=== PATIENT | female | born 1975 | race Caucasian/White ===

== ENCOUNTER 2019-07-28 10:12 | Emergency (ER) | payer MEDICAID, OTHER ==
[~2019-07-28] VITALS: Ht 162.5 cm; Wt 68.0 kg
[2019-07-28] MEDS ORDERED: LACTATED RINGERS 1,000 ML IV ONE (10:26)
[2019-07-28] MEDS ORDERED: RT-ALBUTEROL/IPRATROPIUM 3 ML (DUONEB) VIAL INH ONE (10:30)
--- NOTE | 2019-07-28 10:34 | ED Chest Pain ---
General Stated Complaint: COUGH;SOA;CP Source: patient, other (health Department and [facility]) Exam Limitations: no limitations History of Present Illness Date Seen by Provider: Jul 28, 2019 Time Seen by Provider: 10:13 Initial Comments The patient resents ER by EMS from home with chief complaint the past several days having cough, nonproductive without fever or chills, nausea vomiting. She's had chest pain worse with deep inspiration and coughing in the middle of her chest reproducible to palpation. She has no history of coronary disease but has her mom having a heart attack in her late 40s or early 50s. She smokes about half a pack of cigarettes per day. She has not been to see anybody. She called the health department and they recommended that they would see her but the health department related to the ER that they would not test her she did not h ave a fever based on her symptoms. The patient did recently relocated from [place] July 08 to be closer to her son and grandchildren. The patient stated she did not help department because she did not transportation. She is referred to [facility] who said that they would provide her transportation however they felt that her coughing was bad enough she needs to be checked out in the ER and recommend she call an ambulance. EMS reports normal oxygen sats, coughing, clear lungs and a blood sugar in the upper 80s. She has no history of diabetes, hypercholesterolemia, hypertension. She does not follow with a primary care doctor. She has untreated paranoid schizophrenia, PTSD, ADHD, bipolar disorder. Patient does not take any medicines routinely. Patient denies having taken any antipyretics today. She said she had some ibuprofen last night before going to bed she had a headache. She's not having a headache, stiff neck at this time. No nausea vomiting diarrhea. No known sick contacts. No one in the home is sick but her. Allergies and Home Medications Allergies Coded Allergies: buspirone (Verified Allergy, Unknown, 07/28/19) cephalexin (Verified Allergy, Unknown, 07/28/19) codeine (Verified Allergy, Unknown, 07/28/19) fluoxetine (Verified Allergy, Unknown, 07/28/19) haloperidol (Verified Allergy, Unknown, 07/28/19) Patient Home Medication List Home Medication List Reviewed: Yes Review of Systems Review of Systems Constitutional: No chills, No fever; malaise EENTM: No Blurred Vision, No Double Vision Respiratory: Cough, Shortness of Air; Denies SOA With Exertion, Denies SOA at Rest, Denies Wheezing Cardiovascular: See HPI, Chest Pain; Denies Irregular Heart Rate; Lig htheadedness; Denies Palpitations Gastrointestinal: Denies Abdominal Pain, Denies Constipated, Denies Diarrhea, Denies Nausea, Denies Vomiting Genitourinary: Denies Burning, Denies Discharge Musculoskeletal: No back pain, No joint pain Skin: No pruritus, No rash Psychiatric/Neurological: Denies Headache, Denies Numbness, Denies Paresthesia All Other Systems Reviewed Negative Unless Noted: Yes Past Mewgmmu-Ebzium-Qwhxgo Hx Patient Social History Alcohol Use: Denies Use Recreational Drug Use: No Smoking Status: Current Everyday Smoker Type Used: Cigarettes (half pack per day) Physical Exam Vital Signs Vital Signs - First Documented 07/28/19 07/28/19 10:12 10:43 Temp 36.8 Pulse 76 Resp 24 B/P (MAP) 95/71 (79) Pulse Ox 100 O2 Delivery Room Air Capillary Refill : Height, Weight, BMI Height: '" Weight: lbs. oz. kg; BMI Method: General Appearance: No Apparent Distress, WD/WN, Anxious HEENT: PERRL/EOMI, TMs Normal; No Moist Mucous Membranes (mildly dry); Pharyngeal Erythema; No Tonsillar Exudate, No Tonsillar Enlargement Neck: Full Range of Motion, Normal Inspection, Non Tender, Supple Respiratory: Lungs Clear, Normal Breath Sounds, No Accessory Muscle Use, No Respiratory Distress, Other (frequent, dry cough) Cardiovascular: Regular Rate, Rhythm, Normal Peripheral Pulses Gastrointestinal: Normal Bowel Sounds, Non Tender, Soft Extremity: Normal Capillary Refill, Normal Inspection, No Pedal Edema Neurologic/Psychiatric: Alert, Oriented x3, No Motor/Sensory Deficits, Normal Mood/Affect Skin: Normal Color, Warm/Dry Progress/Results/Core Measures Results/Orders Lab Results Laboratory Tests Test 07/28/19 10:24 Range/Units White Blood Count 3.2 L 4.3-11.0 10^3/uL Red Blood Count 4.25 L 4.35-5.85 10^6/uL Hemoglobin 12.1 11.5-16.0 G/DL Hematocrit 36 35-52 % Mean Corpuscular Volume 85 80-99 FL Mean Corpuscular Hemoglobin 28 25-34 PG Mean Corpuscular Hemoglobin Concent 34 32-36 G/DL Red Cell Distribution Width 15.0 H 10.0-14.5 % Platelet Count 349 130-400 10^3/uL Mean Platelet Volume 9.9 7.4-10.4 FL Neutrophils (%) (Auto) 46 42-75 % Lymphocytes (%) (Auto) 39 12-44 % Monocytes (%) (Auto) 13 H 0-12 % Eosinophils (%) (Auto) 2 0-10 % Basophils (%) (Auto) 0 0-10 % Neutrophils # (Auto) 1.5 L 1.8-7.8 X 10^3 Lymphocytes # (Auto) 1.3 1.0-4.0 X 10^3 Monocytes # (Auto) 0.4 0.0-1.0 X 10^3 Eosinophils # (Auto) 0.1 0.0-0.3 10^3/uL Basophils # (Auto) 0.0 0.0-0.1 10^3/uL Prothrombin Time 13.1 12.2-14.7 SEC INR Comment 1.0 0.8-1.4 Activated Partial Thromboplast Time 29 24-35 SEC Sodium Level 136 135-145 MMOL/L Potassium Level 4.5 3.6-5.0 MMOL/L Chloride Level 110 H 98-107 MMOL/L Carbon Dioxide Level 17 L 21-32 MMOL/L Anion Gap 9 5-14 MMOL/L Blood Urea Nitrogen 20 H 7-18 MG/DL Creatinine 0.84 0.60-1.30 MG/DL Estimat Glomerular Filtration Rate > 60 BUN/Creatinine Ratio 24 Glucose Level 109 H 70-105 MG/DL Calcium Level 8.2 L 8.5-10.1 MG/DL Corrected Calcium 8.8 8.5-10.1 MG/DL Magnesium Level 1.7 1.6-2.4 MG/DL Total Bilirubin 0.3 0.1-1.0 MG/DL Aspartate Amino Transf (AST/SGOT) 28 5-34 U/L Alanine Aminotransferase (ALT/SGPT) 26 0-55 U/L Alkaline Phosphatase 59 40-136 U/L Myoglobin 31.1 10.0-92.0 NG/ML Troponin I < 0.028 <0.028 NG/ML Total Protein 7.5 6.4-8.2 GM/DL Albumin 3.3 3.2-4.5 GM/DL Micro Results Microbiology 07/28/19 Influenza Types A,B Antigen (CHARBEL) - Final, Complete My Orders Orders - EAMON ANTUNEZ Cbc With Automated Diff (07/28/19 10:26) Magnesium (07/28/19 10:) Chest 1 View, Ap/Pa Only (07/28/19 10:) Ekg Tracing (07/28/19 10:) Comprehensive Metabolic Panel (07/28/19 10:) Myoglobin Serum (07/28/19 10:) Protime With Inr (07/28/19 10:) Partial Thromboplastin Time (07/28/19 10:) O2 (07/28/19 10:) Monitor-Rhythm Ecg Trace Only (07/28/19 10:) Lipid Panel (07/29/19 06:00) Ed Iv/Invasive Line Start (07/28/19 10:) Troponin I (07/28/19 10:) Ed Iv/Invasive Line Start (07/28/19 10:26) Lactated Ringers (Lr 1000 Ml Iv Solution (07/28/19 10:26) Albuterol/Ipra Inhalation Soln (Duoneb I (07/28/19 10:30) Svn Small Volume Nebulizer (07/28/19 10:26) Influenza A And B Antigens (07/28/19 10:) Rx-Albuterol Inhaler (Rx-Proair) (07/28/19 11:34) Medications Given in ED Current Medications Medications Dose Ordered Sig/Henry Route Start Time Stop Time Status Last Admin Dose Admin Albuterol/ Ipratropium 3 ml ONCE ONCE INH 07/28/19 10:30 07/28/19 10:31 DC 07/28/19 10:38 3 ML Lactated Ringer's 1,000 ml @ 0 mls/hr Q0M ONCE IV 07/28/19 10:26 07/28/19 10:28 DC 07/28/19 10:34 1,000 MLS/HR Vital Signs/I&O 07/28/19 07/28/19 10:12 10:43 Temp 36.8 Pulse 76 Resp 24 B/P (MAP) 95/71 (79) Pulse Ox 100 O2 Delivery Room Air Room Air Progress Progress Note #1: Time: 10:35 Progress Note Patient received 325 mg of aspirin from EMS. We'll get an EKG. The 12-lead from EMS was reviewed and unremarkable. Chest x-ray, labs, Liter of fluids. I suspect her pain is pleuritic related to her cough. Bronchitis, pertussis, pneumonia. She's not had any fever however and her cough has not been productive so expect she will not have a bacterial infection. Plan to discharge her home to quarantine if we don't find anything dangerous. If her troponins negative ini aba we can give her a dose of Toradol and see if this helps her pleuritic pain. Progress Note #2: Time: 11:24 Progress Note Repeat auscultation after DuoNeb reveals the patient has still clear lungs although she is coughing significantly less frequently. Patient states she feels her cough is much improved and less frequent after the breathing treatment. We can send her home with albuterol inhaler prescription and spacer. She does not have any significant vital signs. Her blood pressure although has been soft around the 100 systolic this is probably normal for her and the map is certainly good. She does not have a elevated heart rate along with it and is not on any medication that would block this. We gave her a liter fluids and her blood pressure did not significantly change. [place] is not in or on the way from any of the affected County is in [place] for high risk. The patient does not have any known exposures. She is not a person under investigation. Her risk for Covid19 is considered at population level and she does not merit inpatient management of her symptoms nor did she may merit testing at this time. We spoke with the health department and they agree with this. Initial ECG Impression Date: Jul 28, 2019 Initial ECG Impression Time: 10:52 Initial ECG Rate: 65 Initial ECG Rhythm: Normal Sinus Initial ECG Intervals: Normal Initial ECG Impression: Normal Initial ECG Comparisson: No Previous ECG Available Comment Normal sinus rhythm without ST elevation or depression. Diagnostic Imaging Diagonstic Imaging: Xray Plain Films/CT/US/NM/MRI: chest (1v) Comments NAME: SHERRI VELÁSQUEZ [facility] REC#: [id number] PT STATUS: REG ER : 1975 PHYSICIAN: EAMON ANTUNEZ MD ADMIT DATE: 07/28/19/ER Draft Date of Exam:07/28/19 CHEST 1 VIEW, AP/PA ONLY INDICATION: Cough and shortness of breath as well as chest tightness and fatigue. Time of exam 11:07 AM No prior studies are available for comparison. The heart size is normal. The pulmonary vascularity is unremarkable. The lungs are clear. No infiltrate, effusion or pneumothorax is detected. Impression: No acute cardiopulmonary process is detected. Dictated on workstation # [id number] Dict: 07/28/19 1116 Trans: 07/28/19 1118 [facility] [id number] Interpreted by: KEVIN ROBLES MD Electronically signed by: Reviewed: Reviewed by Me Departure Impression Primary Impression: Bronchitis Additional Impression: Pleurisy, non-tuberculous Disposition: HOME, SELF-CARE Condition: Stable Departure-Patient Inst. Decision time for Depature: 11:30 Referrals: UNKNOWN (PCP) Primary Care Physician Patient Instructions: Acute Bronchitis, Adult (DC), LOCAL PHYSICIAN LIST, Pleuritic Chest Pain Add. Discharge Instructions: You have bronchitis. Typically this is caused by a virus and will resolve in 10- 14 days. Use humidifiers, vapor rubs such as Vicks or Mentholatum and drink plenty of fluids. Tylenol 1000 mg every 8 hours as needed for pain. Ibuprofen 800 mg every 8 hours as needed for pain. Cough drops can be helpful. Tessalon Perles 1 caplet every 6 hours as needed for cough. If you're having coughing fits you can take 2 puffs of an albuterol inhaler every 4 hours as needed. Use the spacer as directed. If despite these treatments are still having severe shortness of breath and cannot catch her air or you're having other severe symptoms please return to the ER otherwise plan to follow up with a primary care doctor if your symptoms are not improving in 2 weeks. Scripts Benzonatate (TESSALON PERLES) 100 Mg Capsule 100 MG PO Q6H PRN for COUGH, #30 CAP 0 Refills Prov: EAMON ANTUNEZ 07/28/19 EAMON ANTUNEZ Jul 28, 2019 10:34
[2019-07-28 10:35] LABS: BASOPHILS % (AUTO) 0 % (0-10); EOSINOPHILS # (AUTO) 0.1 10^3/uL (0.0-0.3); EOSINOPHILS % (AUTO) 2 % (0-10); HEMATOCRIT 36 % (35-52); HEMOGLOBIN 12.1 G/DL (11.5-16.0); LYMPHOCYTES # (AUTO) 1.3 X 10^3 (1.0-4.0); LYMPHOCYTES % (AUTO) 39 % (12-44); MEAN CORPUSCULAR HEMOGLOBIN 28 PG (25-34); MEAN CORPUSCULAR HGB CONC 34 G/DL (32-36); MEAN CORPUSCULAR VOLUME 85 FL (80-99); MEAN PLATELET VOLUME 9.9 FL (7.4-10.4); MONOCYTES # (AUTO) 0.4 X 10^3 (0.0-1.0); MONOCYTES % (AUTO) 13 % (0-12); NEUTROPHILS # (AUTO) 1.5 X 10^3 (1.8-7.8); NEUTROPHILS % (AUTO) 46 % (42-75); PLATELET COUNT 349 10^3/uL (130-400); WHITE BLOOD COUNT 3.2 10^3/uL (4.3-11.0)
[2019-07-28 10:46] LABS: PROTHROMBIN TIME PATIENT 13.1 SEC (12.2-14.7)
[2019-07-28 10:53] LABS: ALANINE AMINOTRANSFERASE 26 U/L (0-55); ALBUMIN 3.3 GM/DL (3.2-4.5); ALKALINE PHOSPHATASE 59 U/L (40-136); BILIRUBIN,TOTAL 0.3 MG/DL (0.1-1.0); BUN/CREATININE RATIO 24; CALCIUM 8.2 MG/DL (8.5-10.1); CARBON DIOXIDE 17 MMOL/L (21-32); CHLORIDE 110 MMOL/L (98-107); CREATININE SERUM 0.84 MG/DL (0.60-1.30); GFR ESTIMATED > 60; GLUCOSE 109 MG/DL (70-105); MAGNESIUM 1.7 MG/DL (1.6-2.4); POTASSIUM 4.5 MMOL/L (3.6-5.0); SODIUM 136 MMOL/L (135-145); TOTAL PROTEIN 7.5 GM/DL (6.4-8.2)
--- NOTE | 2019-07-28 11:18 | Diagnostic Imaging Report ---
INDICATION: Cough and shortness of breath as well as chest tightness and fatigue. Time of exam 11:07 AM No prior studies are available for comparison. The heart size is normal. The pulmonary vascularity is unremarkable. The lungs are clear. No infiltrate, effusion or pneumothorax is detected. Impression: No acute cardiopulmonary process is detected. Dictated by: Dictated on workstation # [id number]
[2019-07-28] MEDS ORDERED: RX-ALBUTEROL INHALER (PROAIR) 8.5 GM IH STA (11:34)
[2019-07-28] MEDS ORDERED: BENZ100C18 PO (11:40)
[2019-07-28] MEDS ORDERED: KETOROLAC 30 MG/ML VIAL IVP ONE (11:45)
[2019-07-28 11:55] VITALS: BP 107/79
== END 2019-07-28 12:09 | disposition home or self-care (01) ==
LOC: ER 10:15
DX: J40 Bronchitis, not specified as acute or chronic (principal); R09.1 Pleurisy; F20.0 Paranoid schizophrenia; F43.10 Post-traumatic stress disorder, unspecified; F90.9 Attention-deficit hyperactivity disorder, unspecified type; F31.9 Bipolar disorder, unspecified; F17.210 Nicotine dependence, cigarettes, uncomplicated
CPT/HCPCS: 36415; 71045; 80053; 83735; 83874; 84484; 85025; 85610; 85730; 87804; 93005; 93041; 94640; 94664

== ENCOUNTER 2019-10-06 12:44 | Emergency (ER) | payer SELFPAY ==
[~2019-10-06] VITALS: Ht 165 cm; Wt 68.0 kg
[~2019-10-06 12:44] MED LIST: BENZ100C18 PO
[2019-10-06 13:04] VITALS: BP 103/81
[2019-10-06] MEDS ORDERED: AMOX500C2 PO (13:08)
[2019-10-06] MEDS ORDERED: PRD20T PO (13:08)
--- NOTE | 2019-10-06 13:09 | ED General ---
General Stated Complaint: BLISTERS;SORE THROAT;FEVER;COUGH Source of Information: Patient Exam Limitations: No Limitations History of Present Illness Date Seen by Provider: Oct 06, 2019 Time Seen by Provider: 13:06 Initial Comments To ER with reports of blister on her tongue, sore throat cough. Timing/Duration: 1-2 Days Severity: Moderate Associated Systoms: Denies Symptoms Allergies and Home Medications Allergies Coded Allergies: buspirone (Verified Allergy, Unknown, 07/28/19) cephalexin (Verified Allergy, Unknown, 07/28/19) codeine (Verified Allergy, Unknown, 07/28/19) fluoxetine (Verified Allergy, Unknown, 07/28/19) haloperidol (Verified Allergy, Unknown, 07/28/19) Home Medications Benzonatate 100 Mg Capsule, 100 MG PO Q6H PRN for COUGH Prescribed by: EAMON ANTUNEZ on 07/28/19 1140 Patient Home Medication List Home Medication List Reviewed: Yes Review of Systems Review of Systems Constitutional: see HPI EENTM: see HPI Respiratory: no symptoms reported Cardiovascular: no symptoms reported Genitourinary: no symptoms reported Musculoskeletal: no symptoms reported Skin: no symptoms reported Psychiatric/Neurological: No Symptoms Reported Hematologic/Lymphatic: No Symptoms Reported Immunological/Allergic: no symptoms reported Past Adgjdjk-Soijzu-Iawtfn Hx Patient Social History Type Used: Cigarettes 2nd Hand Smoke Exposure: Yes Recent Foreign Travel: No Contact w/Someone Who Travel: No Recent Hopitalizations: No Seasonal Allergies Seasonal Allergies: No Past Medical History Orthopedic, Tubal Ligation Respiratory: No Cardiac: No Neurological: Yes Headaches /Migraines [employer]IAN History: Tubal Ligation Gastrointestinal: Yes Gastroesophageal Reflux, Ulcer Musculoskeletal: No Endocrine: Yes (hypoglycemia) HEENT: No Psychosocial: Yes ADD/ADHD, Anxiety, Bipolar, Personality Disorder, Schizophrenia Integumentary: No Blood Disorders: No Physical Exam Vital Signs Capillary Refill : Height, Weight, BMI Height: '" Weight: lbs. oz. kg; 25.00 BMI Method: General Appearance: No Apparent Distress, WD/WN Eyes: Bilateral Eye Normal Inspection, Bilateral Eye PERRL, Bilateral Eye EOMI HEENT: PERRL/EOMI, TMs Normal, Other (tongue has the appearance of geographic tongue, no ulceration to the pharynx, buccal surfaces of the cheek or tongue.) Neck: Full Range of Motion, Normal Inspection Respiratory: No Accessory Muscle Use, No Respiratory Distress Cardiovascular: Regular Rate, Rhythm Gastrointestinal: Non Tender, Soft Extremity: Normal Capillary Refill Neurologic/Psychiatric: Alert, Oriented x3, No Motor/Sensory Deficits Skin: Normal Color, Warm/Dry Progress/Results/Core Measures Suspected Sepsis SIRS Temperature: Pulse: Respiratory Rate: Blood Pressure / Mean: Results/Orders Vital Signs/I&O Capillary Refill : Departure Impression Primary Impression: Pharyngitis Disposition: HOME, SELF-CARE Condition: Stable Departure-Patient Inst. Decision time for Depature: 13:07 Referrals: NO,LOCAL PHYSICIAN (PCP/Family) Primary Care Physician Patient Instructions: Sore Throat in Adults Add. Discharge Instructions: 1. Antibiotics and steroids as directed. Follow-up with your doctor next week return to ER for any worsening. Scripts Amoxicillin (Amoxicillin) 500 Mg Capsule 500 MG PO TID, #21 CAP 0 Refills Prov: ERIK KUNZ APRN 10/06/19 Prednisone (Prednisone) 20 Mg Tab 40 MG PO DAILY, #4 TAB 0 Refills Prov: ERIK KUNZ APRN 10/06/19 Work/School Note: Work Release Form Date Seen in the Emergency Department: Oct 06, 2019 Return to Work: Oct 08, 2019 ERIK KUNZ APRN Oct 06, 2019 13:09
--- OUTSIDE RECORDS SUMMARY | 2019-10-06 15:56 | XMS REPORT | Continuity of Care Document ---
Author Organization Unknown Address Unknown Phone Unavailable Allergies Active Description Code Type Severity Reaction Onset Reported/Identified Relationship to Patient Clinical Status Yes buspirone [id number] Drug Allergy Unknown N/A 07/28/2019 Yes cephalexin [id number] Drug Allerg y Unknown N/A 07/28/2019 Yes codeine [id number] Drug Allergy Unknown N/A 07/28/2019 Yes fluoxetine [id number] Drug Allerg y Unknown N/A 07/28/2019 Yes haloperidol [id number] Drug Aller gy Unknown N/A 07/28/2019 Medications There is no data. Problems Date Dx Coded Attending Type Code Diagnosis Diagnosed By 07/28/2019 EAMON ANTUNEZ MD Ot F17.210 NICOTINE DEPENDENCE, CIGARETTES, UNCOMPL 07/28/2019 EAMON ANTUNEZ MD Ot F20. 0 PARANOID SCHIZOPHRENIA 07/28/2019 EAMON ANTUNEZ MD Ot F31. 9 BIPOLAR DISORDER, UNSPECIFIED 07/28/2019 EAMON ANTUNEZ MD Ot F43. 10 POST-TRAUMATIC STRESS DISORDER, UNSPECIF 07/28/2019 EAMON ANTUNEZ MD Ot F90. 9 ATTENTION-DEFICIT HYPERACTIVITY DISORDER 07/28/2019 EAMON ANTUNEZ MD Ot J40 BRONCHITIS, NOT SPECIFIED ACUTE OR CH 07/28/2019 EAMON ANTUNEZ MD Ot R05 COUGH 07/28/2019 EAMON ANTUNEZ MD Ot R09. 1 PLEURISY 08/02/2019 EAMON ANTUNEZ MD Ot F17.210 NICOTINE DEPENDENCE, CIGARETTES, UNCOMPL 08/02/2019 EAMON ANTUNEZ MD Ot F20. 0 PARANOID SCHIZOPHRENIA 08/02/2019 EAMON ANTUNEZ MD Ot F31. 9 BIPOLAR DISORDER, UNSPECIFIED 08/02/2019 EAMON ANTUNEZ MD Ot F43. 10 POST-TRAUMATIC STRESS DISORDER, UNSPECIF 08/02/2019 EAMON ANTUNEZ MD Ot F90. 9 ATTENTION-DEFICIT HYPERACTIVITY DISORDER 08/02/2019 EAMON ANTUNEZ MD, Ot J40 BRONCHITIS, NOT SPECIFIED ACUTE OR CH 08/02/2019 EAMON ANTUNEZ MD Ot R05 COUGH 08/02/2019 EAMON ANTNUEZ MD, Ot R09. 1 PLEURISY Procedures There is no data. Results Test Result Range Complete blood count (CBC) with automate d white blood cell (WBC) differential - 07/28/19 10:24 Blood leukocytes automated count (number/volume) 3.2 10*3/uL 4.3-11.0 Blood erythrocytes automated count (number/volume) 4.25 10*6/uL 4.35-5.85 Venous blood hemoglobin measurement (mass/volume) 12.1 g/dL 11.5-16.0 Blood hematocrit (volume fraction) 36 % 35-52 Automated erythrocyte mean corpuscular volume 85 [ foz_us] 80-99 Automated erythrocyte mean corpuscular h emoglobin (mass per erythrocyte) 28 pg 25-34 Automated erythrocyte mean corpuscular h emoglobin concentration measurement (mass/volume) 34 g/dL 32-36 Automated erythrocyte distribution width ratio 15. 0 % 10.0- 14.5 Automated blood platelet count (count/volume) 349 10*3/uL 130-400 Automated blood platelet mean volume measurement 9.9 [foz_us] 7.4-10.4 Automated blood neutrophils/100 leukocytes 46 % 42-75 Automated blood lymphocytes/100 leukocytes 39 % 12-44 Blood monocytes/100 leukocytes 13 % 0-12 Automated blood eosinophils/100 leukocytes 2 % 0-10 Automated blood basophils/100 leukocytes 0 % 0-10 Blood neutrophils automated count (number/volume) 1.5 10*3 1.8-7.8 Blood lymphocytes automated count (number/volume) 1.3 10*3 1.0-4.0 Blood monocytes automated count (number/volume) 0. 4 10*3 0.0-1.0 Automated eosinophil count 0.1 10*3/uL 0 .0-0.3 Automated blood basophil count (count/volume) 0.0 10*3/uL 0.0-0.1 Comprehensive metabolic panel - 07/28/19 10:24 Serum or plasma sodium measurement (moles/volume) 136 mmol/L 135-145 Serum or plasma potassium measurement (moles/volume) 4.5 mmol/L 3.6-5.0 Serum or plasma chloride measurement (moles/volume) 110 mmol/L 98-107 Carbon dioxide 17 mmol/L 21-32 Serum or plasma anion gap determination (moles/volume) 9 mmol/L 5-14 Serum or plasma urea nitrogen measurement (mass/volume ) 20 mg/dL 7-18 Serum or plasma creatinine measurement (mass/volume) 0.84 mg/dL 0.60-1.30 Serum or plasma urea nitrogen/creatinine mass ratio 24 NRG Serum or plasma creatinine measurement w ith calculation of estimated glomerular filtration rate > NRG Serum or plasma glucose measurement (mass/volume) 109 mg/dL 70-105 Serum or plasma calcium measurement (mass/volume) 8.2 mg/dL 8.5-10.1 Serum or plasma total bilirubin measurement (mass/volu me) 0.3 mg/dL 0.1-1.0 Serum or plasma alkaline phosphatase devon surement (enzymatic activity/volume) 59 U/L 40-136 Serum or plasma aspartate aminotransfera se measurement (enzymatic activity/volume) 28 U/L 5-34 Serum or plasma alanine aminotransferase measurement (enzymatic activity/volume) 26 U/L 0-55 Serum or plasma protein measurement (mass/volume) 7.5 g/dL 6.4-8.2 Serum or plasma albumin measurement (mass/volume) 3.3 g/dL 3.2-4.5 CALCIUM CORRECTED 8.8 mg/dL 8.5-10.1 Magnesium - 07/28/19 10:24 Magnesium 1.7 mg/dL 1.6-2.4 PT panel in platelet poor plasma by coag ulation assay - 07/28/19 10:24 Prothrombin time (PT) in platelet poor plasma by coagu lation assay 13.1 s 12.2-14.7 INR in platelet poor plasma or blood by coagulation as say 1.0 0.8-1.4 Activated partial thromboplastin time (a PTT) in platelet poor plasma bycoagulation assay - 07/28/19 10:24 Activated partial thromboplastin time (a PTT) in platelet poor plasma bycoagulation assay 29 s 24-35 Myoglobin, serum - 07/28/19 10:24 Myoglobin, serum 31.1 ng/mL 10.0-92.0 Serum or plasma troponin i.cardiac measu rement (mass/volume) - 07/28/19 10:24 Serum or plasma troponin i.cardiac measurement (mass/v olume) < ng/mL <0.028 Influenza virus A and B antigen detectio n - 07/28/19 10:35 FLU RESULT NEGATIVE FOR INFLUENZA A AND B ANTIGENS BY IA NRG Encounters ACCT No. Visit Date/Time Discharge Status Pt. Type Provider Facility Loc./Unit Complaint [id number] 10/06/2019 12:46:00 020 13:25:00 DIS Emergency ERIK KUNZ APRN [facility] ER BLISTERS;SORE THROAT;FE ALICIA;COUGH [id number] 07/28/2019 10:15:00 020 12:09:00 DIS Emergency EAMON ANTUNEZ MD [facility] ER COUGH;SOA;CP
== END 2019-10-06 13:25 | disposition home or self-care (01) ==
LOC: EDUNIT# 12:44 → ER 12:46
DX: J02.9 Acute pharyngitis, unspecified (principal); Z88.1 Allergy status to other antibiotic agents; Z88.5 Allergy status to narcotic agent; Z88.8 Allergy status to other drugs, medicaments and biological substances; Z77.22 Contact with and (suspected) exposure to environmental tobacco smoke (acute) (chronic)
CPT/HCPCS: 99282

== ENCOUNTER 2020-03-03 10:51 | Emergency (ER) | payer SELFPAY ==
[~2020-03-03] VITALS: Ht 160 cm; Wt 77.0 kg
[~2020-03-03 10:51] MED LIST changes: +AMOX500C2 PO; +PRD20T PO
[2020-03-03] MEDS ORDERED: KETOROLAC 30 MG/ML VIAL ONE (11:13)
[2020-03-03] MEDS ORDERED: KETOROLAC 30 MG/ML VIAL IVP ONE (11:15)
--- NOTE | 2020-03-03 11:15 | ED EENT ---
History of Present Illness General Stated Complaint: CHEST PAIN;COUGH;RUNNY NOSE Source: patient Exam Limitations: no limitations History of Present Illness Date Seen by Provider: Mar 03, 2020 Time Seen by Provider: 11:14 Initial Comments To ER with reports of chest tightness constant since yesterday worsened by coughing movement and deep breathing. She has a chronic smoker's cough that is unchanged in character or frequency. She does have new onset nasal congestion for the past 3 days no fevers. Timing/Duration: this morning Severity: moderate Associated Symptoms: cough, sinus infection Allergies and Home Medications Allergies Coded Allergies: buspirone (Verified Allergy, Unknown, 07/28/19) cephalexin (Verified Allergy, Unknown, 07/28/19) codeine (Verified Allergy, Unknown, 07/28/19) fluoxetine (Verified Allergy, Unknown, 07/28/19) haloperidol (Verified Allergy, Unknown, 07/28/19) Home Medications Amoxicillin 500 Mg Capsule, 500 MG PO TID Prescribed by: ERIK KUNZ on 10/06/19 1308 Benzonatate 100 Mg Capsule, 100 MG PO Q6H PRN for COUGH Prescribed by: EAMON ANTUNEZ on 07/28/19 1140 Prednisone 20 Mg Tab, 40 MG PO DAILY Prescribed by: ERIK KUNZ on 10/06/19 1308 Patient Home Medication List Home Medication List Reviewed: Yes Review of Systems Review of Systems Constitutional: see HPI; No chills, No fever Eyes: No Symptoms Reported Ears: No Symptoms Reported, Clear Discharge Nose: no symptoms reported Mouth: no symptoms reported Throat: no symptoms reported Respiratory: see HPI, cough Cardiovascular: no symptoms reported Musculoskeletal: no symptoms reported Skin: no symptoms reported Neurological: No Symptoms Reported Hematologic/Lymphatic: No Symptoms Reported Immunological/Allergic: no symptoms reported Past Bkdpyni-Uyytye-Qifsit Hx Patient Social History Type Used: Cigarettes 2nd Hand Smoke Exposure: Yes Recent Hopitalizations: No Immunizations Up To Date Tetanus Booster (TDap): Unknown PED Vaccines UTD: Yes Seasonal Allergies Seasonal Allergies: No Past Medical History Orthopedic, Tubal Ligation Respiratory: No Cardiac: No Neurological: Yes Headaches /Migraines [employer] History: Tubal Ligation Gastrointestinal: Yes Gastroesophageal Reflux, Ulcer Musculoskeletal: No Endocrine: Yes (hypoglycemia) HEENT: No Psychosocial: Yes ADD/ADHD, Anxiety, Bipolar, Personality Disorder, Schizophrenia Integumentary: No Blood Disorders: No Physical Exam Vital Signs Vital Signs - First Documented 03/03/20 11:02 Temp 37.1 Pulse 72 Resp 20 B/P (MAP) 100/67 (78) Pulse Ox 98 O2 Delivery Room Air Height, Weight, BMI Height: '" Weight: lbs. oz. kg; 24.00 BMI Method: General Appearance: WD/WN, no apparent distress Eyes: bilateral eye normal inspection, bilateral eye PERRL, bilateral eye EOMI Ears: bilateral ear auricle normal, bilateral ear canal normal, bilateral ear TM normal Neck: non-tender, full range of motion Respiratory: normal breath sounds, no respiratory distress, no accessory muscle use Gastrointestinal: normal bowel sounds, non tender, soft Neurologic/Psychiatric: alert, normal mood/affect, oriented x 3 Skin: normal color, warm/dry Progress/Results/Core Measures Results/Orders Lab Results Laboratory Tests Test 03/03/20 11:14 03/03/20 11:28 Range/Units Coronavirus 2019 ([facility]) Negative Negative White Blood Count 3.2 L 4.3-11.0 10^3/uL Red Blood Count 4.11 3.80-5.11 10^6/uL Hemoglobin 11.5 11.5-16.0 g/dL Hematocrit 35 35-52 % Mean Corpuscular Volume 86 80-99 fL Mean Corpuscular Hemoglobin 28 25-34 pg Mean Corpuscular Hemoglobin Concent 33 32-36 g/dL Red Cell Distribution Width 13.9 10.0-14.5 % Platelet Count 305 130-400 10^3/uL Mean Platelet Volume 9.6 9.0-12.2 fL Immature Granulocyte % (Auto) 0 % Neutrophils (%) (Auto) 58 42-75 % Lymphocytes (%) (Auto) 28 12-44 % Monocytes (%) (Auto) 11 0-12 % Eosinophils (%) (Auto) 2 0-10 % Basophils (%) (Auto) 0 0-10 % Neutrophils # (Auto) 1.9 1.8-7.8 10^3/uL Lymphocytes # (Auto) 0.9 L 1.0-4.0 10^3/uL Monocytes # (Auto) 0.4 0.0-1.0 10^3/uL Eosinophils # (Auto) 0.1 0.0-0.3 10^3/uL Basophils # (Auto) 0.0 0.0-0.1 10^3/uL Immature Granulocyte # (Auto) 0.0 0.0-0.1 10^3/uL Sodium Level 133 L 135-145 MMOL/L Potassium Level 4.2 3.6-5.0 MMOL/L Chloride Level 105 98-107 MMOL/L Carbon Dioxide Level 22 21-32 MMOL/L Anion Gap 6 5-14 MMOL/L Blood Urea Nitrogen 10 7-18 MG/DL Creatinine 0.75 0.60-1.30 MG/DL Estimat Glomerular Filtration Rate > 60 BUN/Creatinine Ratio 13 Glucose Level 116 H 70-105 MG/DL Calcium Level 8.3 L 8.5-10.1 MG/DL Corrected Calcium 8.8 8.5-10.1 MG/DL Total Bilirubin 0.3 0.1-1.0 MG/DL Aspartate Amino Transf (AST/SGOT) 29 5-34 U/L Alanine Aminotransferase (ALT/SGPT) 24 0-55 U/L Alkaline Phosphatase 66 40-136 U/L Troponin I < 0.028 <0.028 NG/ML C-Reactive Protein High Sensitivity 0.14 0.00-0.50 MG/DL Total Protein 7.9 6.4-8.2 GM/DL Albumin 3.4 3.2-4.5 GM/DL Micro Results Microbiology 03/03/20 Influenza Types A,B Antigen ([facility]) - Final, Complete My Orders Orders - ERIK KUNZ APRN Influenza A And B Antigens (03/03/20 10:54) Cbc With Automated Diff (03/03/20 10:54) Hs C Reactive Protein (03/03/20 10:54) Ekg Tracing (03/03/20 10:54) Troponin I (03/03/20 10:54) Ed Iv/Invasive Line Start (03/03/20 10:54) Comprehensive Metabolic Panel (03/03/20 10:54) Covid 19 Inhouse Test (03/03/20 10:54) Chest 1 View, Ap/Pa Only (03/03/20 10:56) Ketorolac Injection (Toradol Injection) (03/03/20 11:15) Ketorolac Injection (Toradol Injection) (03/03/20 11:13) Medications Given in ED Current Medications Medications Dose Ordered Sig/Henry Route Start Time Stop Time Status Last Admin Dose Admin Ketorolac Tromethamine 15 mg ONCE ONCE IVP 03/03/20 11:15 03/03/20 11:16 DC 03/03/20 11:33 15 MG Vital Signs/I&O 03/03/20 03/03/20 11:02 11:02 Temp 37.1 Pulse 72 Resp 20 B/P (MAP) 100/67 (78) Pulse Ox 98 O2 Delivery Room Air Room Air Departure Impression Primary Impression: Chest pain Qualified Codes: R07.9 - Chest pain, unspecified Additional Impression: URI (upper respiratory infection) Qualified Codes: J06.9 - Acute upper respiratory infection, unspecified Disposition: HOME, SELF-CARE Condition: Stable Departure-Patient Inst. Decision time for Depature: 12:11 Referrals: NO,LOCAL PHYSICIAN (PCP/Family) Primary Care Physician Patient Instructions: Viral Syndrome (DC) Scripts Azithromycin (Azithromycin) 250 Mg Tablet 250 MG PO UD, #6 TAB TAKE 2 TABLETS ON DAY ONE THEN TAKE 1 TABLET DAILY FOR FOUR MORE DAYS Prov: ERIK KUNZ SOUND ENGINEERING TECHNICIAN 03/03/20 Prednisone (Prednisone) 20 Mg Tab 40 MG PO DAILY, #6 TAB 0 Refills Prov: ERIK KUNZ APRN 03/03/20 ERIK KUNZ APRN Mar 03, 2020 11:15
[2020-03-03 11:41] LABS: BASOPHILS % (AUTO) 0 % (0-10); EOSINOPHILS # (AUTO) 0.1 10^3/uL (0.0-0.3); EOSINOPHILS % (AUTO) 2 % (0-10); HEMATOCRIT 35 % (35-52); HEMOGLOBIN 11.5 g/dL (11.5-16.0); LYMPHOCYTES # (AUTO) 0.9 10^3/uL (1.0-4.0); LYMPHOCYTES % (AUTO) 28 % (12-44); MEAN CORPUSCULAR HEMOGLOBIN 28 pg (25-34); MEAN CORPUSCULAR HGB CONC 33 g/dL (32-36); MEAN CORPUSCULAR VOLUME 86 fL (80-99); MEAN PLATELET VOLUME 9.6 fL (9.0-12.2); MONOCYTES # (AUTO) 0.4 10^3/uL (0.0-1.0); MONOCYTES % (AUTO) 11 % (0-12); NEUTROPHILS # (AUTO) 1.9 10^3/uL (1.8-7.8); NEUTROPHILS % (AUTO) 58 % (42-75); PLATELET COUNT 305 10^3/uL (130-400); WHITE BLOOD COUNT 3.2 10^3/uL (4.3-11.0)
--- NOTE | 2020-03-03 11:50 | Diagnostic Imaging Report ---
INDICATION: cough COMPARISON: 07/28/2019 FINDINGS: Single frontal view of the chest demonstrates normal heart size and pulmonary vascularity. The lungs are well aerated and clear. No large pleural effusion or pneumothorax is seen. The visualized osseous structures show no acute abnormalities. IMPRESSION: 1. No acute cardiopulmonary process. Dictated by: Dictated on workstation # [id number]
[2020-03-03 11:52] LABS: ALBUMIN 3.4 GM/DL (3.2-4.5); CHLORIDE 105 MMOL/L (98-107); POTASSIUM 4.2 MMOL/L (3.6-5.0); SODIUM 133 MMOL/L (135-145)
[2020-03-03 11:53] LABS: CALCIUM 8.3 MG/DL (8.5-10.1)
[2020-03-03 11:54] LABS: GLUCOSE 116 MG/DL (70-105); TOTAL PROTEIN 7.9 GM/DL (6.4-8.2)
[2020-03-03 11:55] LABS: CARBON DIOXIDE 22 MMOL/L (21-32)
[2020-03-03 11:56] LABS: BILIRUBIN,TOTAL 0.3 MG/DL (0.1-1.0)
[2020-03-03 11:58] LABS: ALKALINE PHOSPHATASE 66 U/L (40-136); CREATININE SERUM 0.75 MG/DL (0.60-1.30); GFR ESTIMATED > 60
[2020-03-03 11:59] LABS: BUN/CREATININE RATIO 13
[2020-03-03 12:01] LABS: ALANINE AMINOTRANSFERASE 24 U/L (0-55)
[2020-03-03] MEDS ORDERED: AZIT250T12 PO (12:12)
[2020-03-03] MEDS ORDERED: PRD20T PO (12:12)
[2020-03-03 12:40] VITALS: BP 105/79
== END 2020-03-03 12:40 | disposition home or self-care (01) ==
LOC: EDUNIT# 10:51 → ER 10:54
DX: R07.9 Chest pain, unspecified (principal); J06.9 Acute upper respiratory infection, unspecified; Z77.22 Contact with and (suspected) exposure to environmental tobacco smoke (acute) (chronic); Z20.828 Contact with and (suspected) exposure to other viral communicable diseases; Z88.5 Allergy status to narcotic agent; Z88.1 Allergy status to other antibiotic agents; Z88.8 Allergy status to other drugs, medicaments and biological substances; Z79.52 Long term (current) use of systemic steroids
CPT/HCPCS: 71045; 80053; 84484; 85025; 86141; 87804; 99284; U0002; 36415; 87635

== ENCOUNTER 2020-03-22 12:17 | Emergency (ER) | payer OTHER ==
[~2020-03-22] VITALS: Ht 165.1 cm; Wt 80.7 kg
[~2020-03-22 12:17] MED LIST changes: +AZIT250T12 PO
--- NOTE | 2020-03-22 13:24 | ED Headache ---
General Stated Complaint: MIGRAINE,DIZZINESS,WEAKNESS Source: patient Exam Limitations: no limitations History of Present Illness Date Seen by Provider: Mar 22, 2020 Time Seen by Provider: 13:18 Initial Comments 44-year-old female presents to the emergency department today with a chief complaint of global headache. Onset 3 days ago. Patient states that she has been taking nqjv-ngj-ggsdwlp medications without any relief of her symptoms. Last dose of vqqe-dha-cztkirf medications was low last night. Patient states that she was able to go to work on Friday however every time she heard a noise it made her head throb. Patient called into work yesterday. She has not gone into work yet today. Patient states that she has not had a migraine quite like this since she was a teenager. Patient cannot recall any activity that she was doing at the onset of her headache she woke up with it it severe in nature on Friday morning. She states she had a mild headache when she went to bed on Friday evening. She states today she feels "dizzy", she feels generally weak. She denies any fevers, chills, productive cough. No abdominal pain. She does have some mild nausea. She has not had anything to eat today. All other review of systems reviewed and negative except as stated above. Timing/Duration: constant (3 days) Severity/Quality: severe, achy, constant, pressure, throbbing Location: global Prior Headaches/Recent Trauma: no recent headache/trauma Modifying Factors: improves with exposure to light, improves with other (sound) Associated Symptoms: fatigue, nausea/vomiting, vision changes Allergies and Home Medications Allergies Coded Allergies: buspirone (Verified Allergy, Unknown, 07/28/19) cephalexin (Verified Allergy, Unknown, 07/28/19) codeine (Verified Allergy, Unknown, 07/28/19) fluoxetine (Verified Allergy, Unknown, 07/28/19) haloperidol (Verified Allergy, Unknown, 07/28/19) Home Medications Amoxicillin 500 Mg Capsule, 500 MG PO TID Prescribed by: ERIK KUNZ on 10/06/19 1308 Azithromycin 250 Mg Tablet, 250 MG PO UD TAKE 2 TABLETS ON DAY ONE THEN TAKE 1 TABLET DAILY FOR FOUR MORE DAYS Prescribed by: ERIK KUNZ on 03/03/20 1212 Benzonatate 100 Mg Capsule, 100 MG PO Q6H PRN for COUGH Prescribed by: EAMON ANTUNEZ on 07/28/19 1140 Prednisone 20 Mg Tab, 40 MG PO DAILY Prescribed by: ERIK KUNZ on 10/06/19 1308 Prednisone 20 Mg Tab, 40 MG PO DAILY Prescribed by: ERIK KUNZ on 03/03/20 1212 Patient Home Medication List Home Medication List Reviewed: Yes Review of Systems Review of Systems Constitutional: dizziness, malaise Eyes: Blurred Vision Ears, Nose, Mouth, Throat: no symptoms reported Respiratory: no symptoms reported Cardiovascular: no symptoms reported Gastrointestinal: no symptoms reported Genitourinary: no symptoms reported Musculoskeletal: no symptoms reported Skin: no symptoms reported Psychiatric/Neurological: Headache, Weakness (generalized) All Other Systems Reviewed Negative Unless Noted: Yes Past Nzdsltw-Xeawfr-Cwzmuk Hx Patient Social History Type Used: Cigarettes 2nd Hand Smoke Exposure: Yes Recent Foreign Travel: No Contact w/Someone Who Travel: No Recent Hopitalizations: No Immunizations Up To Date Tetanus Booster (TDap): Unknown PED Vaccines UTD: Yes Seasonal Allergies Seasonal Allergies: No Past Medical History Surgeries: No (L hand) Orthopedic, Tubal Ligation Respiratory: No Cardiac: No Neurological: Yes Headaches /Migraines [employer] History: Tubal Ligation Gastrointestinal: Yes Gastroesophageal Reflux, Ulcer Musculoskeletal: No Endocrine: Yes (hypoglycemia) HEENT: No Psychosocial: Yes ADD/ADHD, Anxiety, Bipolar, Personality Disorder, Schizophrenia Integumentary: No Blood Disorders: No Physical Exam Vital Signs Vital Signs - First Documented 03/22/20 13:06 Temp 36.4 Pulse 84 Resp 16 B/P (MAP) 100/74 (83) O2 Delivery Room Air Capillary Refill : Height, Weight, BMI Height: '" Weight: lbs. oz. kg; 30.00 BMI Method: General Appearance: WD/WN, no apparent distress HEENT: PERRL/EOMI, normal ENT inspection, pharynx normal Neck: full range of motion, supple, normal inspection Cardiovascular: regular rate, rhythm Respiratory: lungs clear, normal breath sounds, no respiratory distress Gastrointestinal: normal bowel sounds, non tender, soft Extremities: normal range of motion, non-tender, normal inspection, no pedal edema Psychiatric: alert, oriented x 3, depressed affect Crainal Nerves: normal hearing, normal speech, PERRL Coordination/Gait: normal finger to nose, negative Romberg's sign Motor/Sensory: no motor deficit, no sensory deficit, no pronator drift Skin: normal color, warm/dry Progress/Results/Core Measures Results/Orders My Orders Orders - SOFÍA ZAPIEN MD Ed Iv/Invasive Line Start (03/22/20 13:24) Prochlorperazine Injection (Compazine In (03/22/20 13:30) Diphenhydramine Injection (Benadryl Inje (03/22/20 13:30) Ketorolac Injection (Toradol Injection) (03/22/20 13:30) Medications Given in ED Current Medications Medications Dose Ordered Sig/Henry Route Start Time Stop Time Status Last Admin Dose Admin Diphenhydramine HCl 25 mg ONCE ONCE IVP 03/22/20 13:30 03/22/20 13:31 DC 03/22/20 14:19 25 MG Ketorolac Tromethamine 30 mg ONCE ONCE IVP 03/22/20 13:30 03/22/20 13:31 DC 03/22/20 14:19 30 MG Prochlorperazine Edisylate 10 mg ONCE ONCE IV 03/22/20 13:30 03/22/20 13:31 DC 03/22/20 14:19 10 MG Vital Signs/I&O 03/22/20 13:06 Temp 36.4 Pulse 84 Resp 16 B/P (MAP) 100/74 (83) O2 Delivery Room Air Progress Progress Note : Time: 13:23 Progress Note 44-year-old female presents with a chief complaint of headache. This is not the worst of her life but it is the worst that she has had in several years. Evaluation today includes a physical exam with neurologic exam. Patient has no focal neurologic deficits. She does complain of some blurry/double vision. Visual acuity will be checked. At this point in time I do not believe that the patient has an indication for a CT head. She will be treated here in the emergency department with IV Toradol, Compazine and Benadryl. 1443 Patient states SANCHEZ starting to feel a little bit better. Departure Impression Primary Impression: Tension type headache Qualified Codes: G44.209 - Tension-type headache, unspecified, not intractable Disposition: 01 HOME, SELF-CARE Condition: Stable Departure-Patient Inst. Decision time for Depature: 14:48 Referrals: [facility] [place] NO,LOCAL PHYSICIAN (PCP) Primary Care Physician Patient Instructions: Headache, Adult (DC) Add. Discharge Instructions: Drink plenty of fluids to stay well-hydrated. Take nsvm-igo-dinqfof Aleve, 2 pills twice daily as needed for severe headache. Always take Aleve with food. Please call and follow-up with your primary care physician. Return to the emergency department for worsening headache especially associated with fever, nausea and vomiting or other emergent, concerning symptoms. Work/School Note: Family Work Note Patient Received Medical Care In the Emergency Department On: Mar 22, 2020 Patient Will Be Able to Return to Work/School On: Mar 23, 2020 SOFÍA ZAPIEN MD Mar 22, 2020 13:23
[2020-03-22] MEDS ORDERED: diphenhydrAMINE 50 MG/ML INJ (BENADRYL) IVP ONE (13:30)
[2020-03-22] MEDS ORDERED: KETOROLAC 30 MG/ML VIAL IVP ONE (13:30)
[2020-03-22] MEDS ORDERED: PROCHLORPERAZINE 10 MG/2ML INJ (COMPAZINE) IV ONE (13:30)
[2020-03-22 14:55] VITALS: BP 140/67
== END 2020-03-22 14:56 | disposition home or self-care (01) ==
LOC: EDUNIT# 12:17 → ER 12:18
DX: G44.209 Tension-type headache, unspecified, not intractable (principal); Z20.828 Contact with and (suspected) exposure to other viral communicable diseases; Z77.22 Contact with and (suspected) exposure to environmental tobacco smoke (acute) (chronic); Z88.5 Allergy status to narcotic agent; Z88.1 Allergy status to other antibiotic agents; Z88.8 Allergy status to other drugs, medicaments and biological substances; Z79.52 Long term (current) use of systemic steroids

== ENCOUNTER 2020-03-29 18:30 | Emergency (ER) | payer SELFPAY ==
[~2020-03-29] VITALS: Ht 165.1 cm; Wt 80.7 kg
[2020-03-29 18:40] VITALS: BP 110/62
[2020-03-29 19:10] LABS: BASOPHILS % (AUTO) 1 % (0-10); EOSINOPHILS # (AUTO) 0.1 10^3/uL (0.0-0.3); EOSINOPHILS % (AUTO) 3 % (0-10); HEMATOCRIT 38 % (35-52); HEMOGLOBIN 12.4 g/dL (11.5-16.0); LYMPHOCYTES # (AUTO) 1.4 10^3/uL (1.0-4.0); LYMPHOCYTES % (AUTO) 34 % (12-44); MEAN CORPUSCULAR HEMOGLOBIN 28 pg (25-34); MEAN CORPUSCULAR HGB CONC 33 g/dL (32-36); MEAN CORPUSCULAR VOLUME 85 fL (80-99); MEAN PLATELET VOLUME 9.5 fL (9.0-12.2); MONOCYTES # (AUTO) 0.4 10^3/uL (0.0-1.0); MONOCYTES % (AUTO) 11 % (0-12); NEUTROPHILS # (AUTO) 2.1 10^3/uL (1.8-7.8); NEUTROPHILS % (AUTO) 52 % (42-75); PLATELET COUNT 343 10^3/uL (130-400); WHITE BLOOD COUNT 4.1 10^3/uL (4.3-11.0)
[2020-03-29] MEDS ORDERED: ASPIRIN 81 MG CHEW (CHILDREN'S ASA) ONE (19:22)
[2020-03-29] MEDS ORDERED: NS IV 1000 ML 1,000 ML ONE (19:22)
[2020-03-29] MEDS ORDERED: NITROGLYCERIN 0.4 MG SL TABS BTL 25'S SL ONE (19:22)
[2020-03-29 19:23] LABS: CHLORIDE 107 MMOL/L (98-107); POTASSIUM 4.1 MMOL/L (3.6-5.0); SODIUM 139 MMOL/L (135-145)
[2020-03-29 19:24] LABS: AMYLASE 79 U/L (25-125); CALCIUM 8.6 MG/DL (8.5-10.1)
[2020-03-29 19:25] LABS: GLUCOSE 80 MG/DL (70-105); TOTAL PROTEIN 8.7 GM/DL (6.4-8.2)
[2020-03-29 19:26] LABS: CARBON DIOXIDE 23 MMOL/L (21-32); FIBRIN DEGRADATION PRODUCTS 0.52 UG/ML (0.00-0.49); PROTHROMBIN TIME PATIENT 13.9 SEC (12.2-14.7)
[2020-03-29 19:27] LABS: BILIRUBIN,TOTAL 0.4 MG/DL (0.1-1.0); ERYTHROCYTE SEDIMENTATION RATE 45 MM/HR (0-20)
[2020-03-29 19:28] LABS: ALKALINE PHOSPHATASE 75 U/L (40-136)
[2020-03-29 19:29] LABS: CREATININE SERUM 0.83 MG/DL (0.60-1.30); GFR ESTIMATED > 60
[2020-03-29 19:30] LABS: BUN/CREATININE RATIO 23
[2020-03-29] MEDS ORDERED: ASPIRIN 81 MG CHEW (CHILDREN'S ASA) PO ONE (19:30)
[2020-03-29] MEDS ORDERED: NS IV 1000 ML 1,000 ML IV SCH ×2 (19:30→21:32)
[2020-03-29 19:31] LABS: MAGNESIUM 1.8 MG/DL (1.6-2.4)
[2020-03-29 19:32] LABS: ALANINE AMINOTRANSFERASE 40 U/L (0-55); CREATINE KINASE 293 U/L (29-168)
[2020-03-29] MEDS ORDERED: KETOROLAC 30 MG/ML VIAL IVP ONE (19:45)
--- NOTE | 2020-03-29 19:55 | Diagnostic Imaging Report ---
INDICATION: Cough. EXAMINATION: Portable erect AP chest at 7:18 p.m. FINDINGS: The heart size is within normal limits and stable when compared to 03/03/2020. The lungs are clear. There is no evidence of failure, pneumonia or for a pleural effusion. The mediastinum is not widened. The osseous structures are intact. IMPRESSION: There is no evidence for active disease. Dictated by: Dictated on workstation # [id number]
--- NOTE | 2020-03-29 19:58 | ED Chest Pain ---
General Chief Complaint: Respiratory Problems Stated Complaint: SOA,CHEST TIGHTNESS, DIZZY Nursing Triage Note: Pt c/o SOB, cough and chest pain that began today. Pt reports being exposed to COVID on Friday. Nursing Sepsis Screen: No Definite Risk Source: patient History of Present Illness Date Seen by Provider: Mar 29, 2020 Time Seen by Provider: 18:44 Initial Comments PT ARRIVES VIA POV FROM HOME STATES THAT AT 1630, WHILE SHE WAS AT WORK AT [employer], SHE BEGAN HAVING CHEST TIGHTNESS, DIZZINESS, AND SHORTNESS OF BREATH PAIN IS IN CENTER OF CHEST AND RATES PAIN 11/11 NO FEVER/SWEATS/CHILLS NO SWELLING IN LEGS / FEET OR PAIN IN CALVES NO LOSS OF TASTE OR SMELL NO SORE THROAT NO NAUSEA/VOMITING/DIARRHEA NO HEADACHE NO BODY ACHES STATES SHE WAS EXPOSED TO COVID-19 ON FRIDAY AND FRIDAY OF THIS WEEK--AT WORK, AND FOUND OUT LAST NIGHT THAT THE CO-WORKER WAS POSITIVE FOR COVID-19. PT SEEN HERE 03/22 FOR TENSION HEADACHE/CHRONIC PROBLEM--NO HEADACHE NOW. SEEN HERE 03/03/20 FOR CHEST PAIN, WAS ALSO HAVING A COUGH AND NASAL CONGESTION/RUNNY NOSE --HAD NEGATIVE RAPID COVID TEST AT THAT TIME, CARDIAC WORK UP AT THAT TIME HAS NOT FOLLOWED UP WITH ANYONE SINCE THOSE VISITS. 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 PCP: [facility] Allergies and Home Medications Allergies Coded Allergies: buspirone (Verified Allergy, Unknown, 07/28/19) cephalexin (Verified Allergy, Unknown, 07/28/19) codeine (Verified Allergy, Unknown, 07/28/19) fluoxetine (Verified Allergy, Unknown, 07/28/19) haloperidol (Verified Allergy, Unknown, 07/28/19) Home Medications Amoxicillin 500 Mg Capsule, 500 MG PO TID Prescribed by: ERIK KUNZ on 10/06/19 1308 Azithromycin 250 Mg Tablet, 250 MG PO UD TAKE 2 TABLETS ON DAY ONE THEN TAKE 1 TABLET DAILY FOR FOUR MORE DAYS Prescribed by: ERIK KUNZ on 03/03/20 1212 Benzonatate 100 Mg Capsule, 100 MG PO Q6H PRN for COUGH Prescribed by: EAMON ANTUNEZ on 07/28/19 1140 Prednisone 20 Mg Tab, 40 MG PO DAILY Prescribed by: ERIK KUNZ on 10/06/19 1308 Prednisone 20 Mg Tab, 40 MG PO DAILY Prescribed by: ERIK KUNZ on 03/03/20 1212 Patient Home Medication List Home Medication List Reviewed: Yes Review of Systems Review of Systems Constitutional: see HPI; No chills, No diaphoresis; dizziness; No fever; malaise EENTM: No Symptoms Reported; No Nose Congestion, No Throat Pain Respiratory: See HPI, Cough, Shortness of Air Cardiovascular: See HPI, Chest Pain; Denies Edema; Lightheadedness; Denies Palpitations, Denies Syncope Gastrointestinal: No Symptoms Reported; Denies Abdominal Pain, Denies Diarrhea, Denies Nausea, Denies Vomiting Genitourinary: No Symptoms Reported Musculoskeletal: no symptoms reported Skin: no symptoms reported Psychiatric/Neurological: No Symptoms Reported; Denies Headache Endocrine: No Symptoms Reported Hematologic/Lymphatic: No Symptoms Reported Past Uhhzuxm-[id number]-Ezytxd Hx Patient Social History Alcohol Use: Denies Use Recreational Drug Use: No Smoking Status: Current Everyday Smoker Type Used: Cigarettes 2nd Hand Smoke Exposure: Yes Recent Foreign Travel: No Contact w/Someone Who Travel: No Recent Infectious Disease Expo: No Recent Hopitalizations: No Immunizations Up To Date Tetanus Booster (TDap): Unknown PED Vaccines UTD: Yes Seasonal Allergies Seasonal Allergies: No Past Medical History Surgeries: Yes Abdominal, Orthopedic, Tubal Ligation Respiratory: No Cardiac: Yes High Cholesterol Neurological: Yes Headaches /Migraines Reproductive Disorders: Yes (ECTOPIC /LEFT SALPINGECTOMY; BTL) SOLE TRIMMER History: Tubal Ligation Genitourinary: No Gastrointestinal: Yes Gastroesophageal Reflux, Ulcer Musculoskeletal: Yes (LEFT 5TH FINGER SURGERY) Endocrine: Yes (hypoglycemia) HEENT: No Cancer: No Psychosocial: Yes (BORDERLINE PERSONALITY; PARANOIA) ADD/ADHD, Anxiety, Bipolar, Personality Disorder, Schizophrenia, Depression Integumentary: No Blood Disorders: No Family Medical History SOCIAL HISTORY: -ETOH--HISTORY OF ABUSE, CLAIMS NO RECENT USE, PER PT 03/29/20 -DRUGS--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 DENIES IV USE. -SMOKES 1 1/2 PPD Physical Exam Vital Signs Vital Signs - First Documented 03/29/20 18:40 Temp 37.0 Pulse 85 Resp 17 B/P (MAP) 110/62 (78) Pulse Ox 100 O2 Delivery Room Air Capillary Refill : Less Than 3 Seconds Height, Weight, BMI Height: '" Weight: lbs. oz. kg; 29.00 BMI Method: General Appearance: No Apparent Distress, WD/WN, Other (UNKEMPT, REEKS OF CIGARETTES. ) HEENT: PERRL/EOMI, Normal ENT Inspection, Pharynx Normal Neck: Full Range of Motion, Normal Inspection, Non Tender, Supple Respiratory: Chest Non Tender, Normal Breath Sounds, No Accessory Muscle Use, No Respiratory Distress Cardiovascular: Regular Rate, Rhythm, No Edema, No JVD, No Murmur, Normal Peripheral Pulses Gastrointestinal: Normal Bowel Sounds, No Organomegaly, No Pulsatile Mass, Non Tender, Soft Extremity: Normal Capillary Refill, Normal Inspection, Normal Range of Motion, Non Tender, No Calf Tenderness, No Pedal Edema Neurologic/Psychiatric: Alert, Oriented x3, No Motor/Sensory Deficits, Normal 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, 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 as 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 Skin: Normal Color, Warm/Dry Focused Exam Lactate Level 03/29/20 19:30: Lactic Acid Level 0.97 Lactic Acid Level Laboratory Tests Test 03/29/20 19:30 Lactic Acid Level 0.97 MMOL/L (0.50-2.00) Progress/Results/Core Measures Results/Orders Lab Results Laboratory Tests Test 03/29/20 19:00 03/29/20 19:30 03/29/20 21:22 Range/Units White Blood Count 4.1 L 4.3-11.0 10^3/uL Red Blood Count 4.45 3.80-5.11 10^6/uL Hemoglobin 12.4 11.5-16.0 g/dL Hematocrit 38 35-52 % Mean Corpuscular Volume 85 80-99 fL Mean Corpuscular Hemoglobin 28 25-34 pg Mean Corpuscular Hemoglobin Concent 33 32-36 g/dL Red Cell Distribution Width 13.3 10.0-14.5 % Platelet Count 343 130-400 10^3/uL Mean Platelet Volume 9.5 9.0-12.2 fL Immature Granulocyte % (Auto) 0 % Neutrophils (%) (Auto) 52 42-75 % Lymphocytes (%) (Auto) 34 12-44 % Monocytes (%) (Auto) 11 0-12 % Eosinophils (%) (Auto) 3 0-10 % Basophils (%) (Auto) 1 0-10 % Neutrophils # (Auto) 2.1 1.8-7.8 10^3/uL Lymphocytes # (Auto) 1.4 1.0-4.0 10^3/uL Monocytes # (Auto) 0.4 0.0-1.0 10^3/uL Eosinophils # (Auto) 0.1 0.0-0.3 10^3/uL Basophils # (Auto) 0.0 0.0-0.1 10^3/uL Immature Granulocyte # (Auto) 0.0 0.0-0.1 10^3/uL Erythrocyte Sedimentation Rate 45 H 0-20 MM/HR Prothrombin Time 13.9 12.2-14.7 SEC INR Comment 1.0 0.8-1.4 Activated Partial Thromboplast Time 34 24-35 SEC D-Dimer 0.52 H 0.00-0.49 UG/ML Sodium Level 139 135-145 MMOL/L Potassium Level 4.1 3.6-5.0 MMOL/L Chloride Level 107 98-107 MMOL/L Carbon Dioxide Level 23 21-32 MMOL/L Anion Gap 9 5-14 MMOL/L Blood Urea Nitrogen 19 H 7-18 MG/DL Creatinine 0.83 0.60-1.30 MG/DL Estimat Glomerular Filtration Rate > 60 BUN/Creatinine Ratio 23 Glucose Level 80 70-105 MG/DL Calcium Level 8.6 8.5-10.1 MG/DL Corrected Calcium 8.6 8.5-10.1 MG/DL Magnesium Level 1.8 1.6-2.4 MG/DL Total Bilirubin 0.4 0.1-1.0 MG/DL Aspartate Amino Transf (AST/SGOT) 53 H 5-34 U/L Alanine Aminotransferase (ALT/SGPT) 40 0-55 U/L Alkaline Phosphatase 75 40-136 U/L Lactate Dehydrogenase 359 H 125-220 U/L Total Creatine Kinase 293 H 29-168 U/L Creatine Kinase MB 7.3 *H <6.6 NG/ML Myoglobin 88.6 10.0-92.0 NG/ML Troponin I < 0.028 <0.028 NG/ML C-Reactive Protein High Sensitivity 0.15 0.00-0.50 MG/DL B-Type Natriuretic Peptide 10.7 <100.0 PG/ML Total Protein 8.7 H 6.4-8.2 GM/DL Albumin 4.0 3.2-4.5 GM/DL Amylase Level 79 25-125 U/L Procalcitonin 0.03 <0.10 NG/ML Serum Test, Qualitative NEGATIVE NEGATIVE Serum Alcohol < 10 <10 MG/DL Coronavirus 2019 ([facility]) Negative Negative Lactic Acid Level 0.97 0.50-2.00 MMOL/L Urine Color YELLOW Urine Clarity CLEAR Urine pH 5.0 5-9 Urine Specific [place] 1.010 L 1.016-1.022 Urine Protein NEGATIVE NEGATIVE Urine Glucose (UA) NEGATIVE NEGATIVE Urine Ketones NEGATIVE NEGATIVE Urine Nitrite NEGATIVE NEGATIVE Urine Bilirubin NEGATIVE NEGATIVE Urine Urobilinogen 0.2 < = 1.0 MG/DL Urine Leukocyte Esterase NEGATIVE NEGATIVE Urine RBC (Auto) NEGATIVE NEGATIVE Urine RBC NONE /HPF Urine WBC 0-2 /HPF Urine Squamous Epithelial Cells 10-25 H /HPF Urine Crystals NONE /LPF Urine Bacteria TRACE /HPF Urine Casts NONE /LPF Urine Mucus NEGATIVE /LPF Urine Culture Indicated NO Urine Opiates Screen NEGATIVE NEGATIVE Urine Oxycodone Screen NEGATIVE NEGATIVE Urine Methadone Screen NEGATIVE NEGATIVE Urine Propoxyphene Screen NEGATIVE NEGATIVE Urine Barbiturates Screen NEGATIVE NEGATIVE Ur Tricyclic Antidepressants Screen NEGATIVE NEGATIVE Urine Phencyclidine Screen NEGATIVE NEGATIVE Urine Amphetamines Screen POSITIVE H NEGATIVE Urine Methamphetamines Screen POSITIVE H NEGATIVE Urine Benzodiazepines Screen POSITIVE H NEGATIVE Urine Cocaine Screen NEGATIVE NEGATIVE Urine Cannabinoids Screen NEGATIVE NEGATIVE Micro Results Microbiology 03/29/20 Influenza Types A,B Antigen ([facility]) - Final, Complete My Orders Orders - CINTHIA SILVER DO Ed Iv/Invasive Line Start (03/29/20 18:44) Ekg Tracing (03/29/20 18:44) O2 (03/29/20 18:44) Monitor-Rhythm Ecg Trace Only (03/29/20 18:44) Chest 1 View, Ap/Pa Only (03/29/20 18:44) Cbc With Automated Diff (03/29/20 18:44) Comprehensive Metabolic Panel (03/29/20 18:44) Fibrin Degradation Products (03/29/20 18:44) Procalcitonin (Pct) (03/29/20 18:44) Hs C Reactive Protein (03/29/20 18:44) Erythrocyte Sedimentation Rate (03/29/20 18:44) LDH (03/29/20 18:44) Blood Culture (03/29/20 18:44) Ekg Tracing (03/29/20 18:44) Influenza A And B Antigens (03/29/20 18:44) Hcg,Qualitative Serum (03/29/20 18:44) Covid 19 Inhouse Test (03/29/20 18:44) Amylase (03/29/20 18:46) BNP (03/29/20 18:46) Creatine Kinase (03/29/20 18:46) Creatine Kinase Mb (03/29/20 18:46) Lactic Acid Analyzer (03/29/20 18:46) Magnesium (03/29/20 18:46) Protime With Inr (03/29/20 18:46) Partial Thromboplastin Time (03/29/20 18:46) Ua Culture If Indicated (03/29/20 18:46) Myoglobin Serum (03/29/20 18:46) Ns Iv 1000 Ml (Sodium Chloride 0.9%) (03/29/20 19:30) Nitroglycerin 0.4 Mg Btl 25's (Nitrostat (03/29/20 19:30) Aspirin Chewable Tablet (Baby Aspirin Ch (03/29/20 19:30) Nitroglycerin 0.4 Mg Btl 25's (Nitrostat (03/29/20 19:22) Aspirin Chewable Tablet (Baby Aspirin Ch (03/29/20 19:22) Ns Iv 1000 Ml (Sodium Chloride 0.9%) (03/29/20 19:22) Coronavirus Sars-Cov-2 So 2018 (03/29/20 19:37) Ketorolac Injection (Toradol Injection) (03/29/20 19:45) Dexamethasone Injection (Decadron Injec (03/29/20 19:45) Alcohol (03/29/20 19:48) Drug Screen Stat (Urine) (03/29/20 19:48) Coronavirus Sars-Cov-2 So 2018 (03/29/20 19:00) Ct Angio Chest W (03/29/20 19:59) Iohexol Injection (Omnipaque 350 Mg/Ml 1 (03/29/20 21:00) Received Contrast (Hold Metformin- Contr (03/29/20 21:00) Ns (Ivpb) (Sodium Chloride 0.9% Ivpb Bag (03/29/20 21:00) Ed Iv/Invasive Line Start (03/29/20 21:32) Ns Iv 1000 Ml (Sodium Chloride 0.9%) (03/29/20 21:32) Troponin I (03/29/20 21:33) Ekg Tracing (03/29/20 21:33) Medications Given in ED Current Medications Medications Dose Ordered Sig/Henry Route Start Time Stop Time Status Last Admin Dose Admin Aspirin 324 mg ONCE ONCE PO 03/29/20 19:30 03/29/20 19:31 DC 03/29/20 19:37 324 MG Dexamethasone Sodium Phosphate 6 mg ONCE ONCE IV 03/29/20 19:45 03/29/20 19:46 DC 03/29/20 20:00 6 MG Iohexol 100 ml ONCE ONCE IV 03/29/20 21:00 03/29/20 21:14 DC 03/29/20 20:56 100 ML Ketorolac Tromethamine 30 mg ONCE ONCE IVP 03/29/20 19:45 03/29/20 19:46 DC 03/29/20 20:05 30 MG Nitroglycerin PHARMACY TO DOSE PRN PRN SL 03/29/20 19:30 03/29/20 23:35 DC 03/29/20 22:04 0.4 MG Sodium Chloride 100 ml ONCE ONCE IV 03/29/20 21:00 03/29/20 21:14 DC 03/29/20 20:56 80 ML Vital Signs/I&O 03/29/20 18:40 Temp 37.0 Pulse 85 Resp 17 B/P (MAP) 110/62 (78) Pulse Ox 100 O2 Delivery Room Air 03/30/20 00:00 Intake Total 1000 ml Balance 1000 ml Blood Pressure Mean: 78 Progress Progress Note : Progress Note PLACED IN ISOLATION ROOM PPE WORN AT ALL TIMES COVID-19 TESTING PERFORMED PT ADVISED OF NEED FOR QUARANTINE GIVEN ASPIRIN GIVEN TORADOL AND DECADRON--NO SIGNIFICANT IMPROVEMENT IN CHEST PAIN GIVEN NTG X 1 WITH SOME DROP IN BP--WAS IN 110'S, DROPPED TO 105 SYSTOLIC. NO IMPROVEMENT IN CHEST PAIN PT SLEPT VERY SOUNDLY FOR MOST OF ER STAY, BUT STILL C/O PAIN "7/10" ON WAKING PT TO ASSESS HER PAIN--PT THEN GOES QUICKLY BACK TO SLEEP REPEAT EKG AND TROPONIN ORDERED, BUT PT DID NOT WANT TO STAY ANY LONGER, AND REFUSES ADMIT. AMA PAPERS SIGNED. PT REMINDED OF NEED FOR QUARANTINE, AND NEED FOR REPEAT TESTING IN 5-7 DAYS, IF SEND OUT COVID TEST IS NEGATIVE Initial ECG Impression Date: Mar 29, 2020 Initial ECG Impression Time: 19:01 Initial ECG Rate: 81 Initial ECG Rhythm: Normal Sinus EKG : EKG Time: 22:00 Rate: 55 Rhythm: Normal Sinus ECG Comparisson: Unchanged Diagnostic Imaging Comments CXR--PER RADIOLOGIST REPORT AT 1957 FINDINGS: The heart size is within normal limits and stable when compared to 03/03/2020. The lungs are clear. There is no evidence of failure, pneumonia or for a pleural effusion. The mediastinum is not widened. The osseous structures are intact. IMPRESSION: There is no evidence for active disease. CT CHEST ANGIOGRAM--PER RADIOLOGIST REPORT AT 2126 IMPRESSION: 1. There is no evidence for an aortic dissection or for a pulmonary embolus. There is no sign of an acute cardiopulmonary abnormality otherwise. 2. There is borderline hepatosplenomegaly. Reviewed: Reviewed by Me Departure Impression Primary Impression: Chest pain Additional Impressions: Person under investigation for COVID-19 Close exposure to COVID-19 virus Illicit drug use Methamphetamine use Left against medical advice Disposition: 07 AGAINST MEDICAL ADVICE Condition: Against Medical Advice Departure-Patient Inst. Referrals: NO,LOCAL PHYSICIAN (PCP/Family) Primary Care Physician CINTHIA SILVER DO Mar 29, 2020 19:58
[2020-03-29] MEDS: NITROGLYCERIN 0.4 MG SL TABS BTL 25'S SL PRN ×2 (20:11→22:04)
[2020-03-29 20:19] LABS: CREATINE KINASE MB 7.3 NG/ML (<6.6)
[2020-03-29] MEDS ORDERED: HOLD METFORMIN - RECEIVED CONTRAST 20 ML VIAL IV SCH (21:00)
[2020-03-29] MEDS ORDERED: NS 100 ML (IVPB) BAG IV ONE (21:00)
[2020-03-29] MEDS ORDERED: IOHEXOL 350 MG/ML 100 ML (OMNIPAQUE 350) VIAL IV ONE (21:00)
--- NOTE | 2020-03-29 21:02 | NUR ---
report given to Rosie to assume care of pt
--- NOTE | 2020-03-29 21:23 | Diagnostic Imaging Report ---
PROCEDURE: CT angiography of the chest with contrast. TECHNIQUE: Multiple contiguous axial images were obtained through the chest after uneventful bolus administration of intravenous contrast. 3D reconstructed CTA MIP acquisitions were also performed. Auto Exposure Controls were utilized during the CT exam to meet ALARA standards for radiation dose reduction. INDICATION: Shortness of breath and cough. COMPARISON: There is no prior CTA chest examination available for comparison. FINDINGS: The plain film examination of the chest performed earlier today at 7:18 p.m. failed to show any sign of an acute cardiopulmonary abnormality. On this exam, there is no defect within the pulmonary arteries to indicate a pulmonary embolus. The aorta is not abnormally dilated and there is no sign of a dissection. The heart size is within normal limits. There is mild dependent atelectasis in both lung bases, particularly the right lung base. There is no evidence for pneumonia, failure or pleural effusion however. There is no mediastinal or hilar adenopathy. The thyroid gland is generally unremarkable. There is no obvious breast mass. The sections through the upper abdomen show that both the liver and spleen are borderline enlarged. The bone windows are unremarkable for a fracture or for a destructive lesion. IMPRESSION: 1. There is no evidence for an aortic dissection or for a pulmonary embolus. There is no sign of an acute cardiopulmonary abnormality otherwise. 2. There is borderline hepatosplenomegaly. Dictated by: Dictated on workstation # [id number]
[2020-03-29 21:41] LABS: BILIRUBIN,URINE NEGATIVE (NEGATIVE); CLARITY,URINE CLEAR; COLOR,URINE YELLOW; GLUCOSE, URINE (UA) NEGATIVE (NEGATIVE); KETONES,URINE NEGATIVE (NEGATIVE); LEUKOCYTE ESTERASE ,URINE NEGATIVE (NEGATIVE); NITRITE,URINE NEGATIVE (NEGATIVE); PROTEIN,URINE NEGATIVE (NEGATIVE)
[2020-03-29 21:56] LABS: AMPHETAMINE SCREEN, URINE POSITIVE (NEGATIVE); BARBITURATE SCREEN URINE NEGATIVE (NEGATIVE); BENZODIAZEPINES SCREEN URINE POSITIVE (NEGATIVE); CANNABINOID SCREEN, URINE NEGATIVE (NEGATIVE); COCAINE SCREEN URINE NEGATIVE (NEGATIVE); METHADONE STAT NEGATIVE (NEGATIVE); METHAMPHETAMINE SCREEN URINE S POSITIVE (NEGATIVE); OPIATE SCREEN URINE NEGATIVE (NEGATIVE); OXYCODONE STAT NEGATIVE (NEGATIVE); PROPOXYPHENE STAT NEGATIVE (NEGATIVE); TRICYCLIC ANTIDEPRESSANTS SCRE NEGATIVE (NEGATIVE)
[2020-03-29 21:58] LABS: BACTERIA,URINE TRACE /HPF; WBC,URINE 0-2 /HPF
--- NOTE | 2020-03-29 23:00 | NUR ---
PT TOLD ALBINO NORWOOD SHE WOULD LIKE TO LEAVE AT THIS TIME. THIS PHOTO ENGRAVER/RN DISCUSSED WITH PT THE BENEFITS OF STAYING AND POTENTIAL CONSEQUENCES OF LEAVING, PT VERBALIZED UNDERSTANDING AND STILL REQUESTS TO LEAVE AMA. FORM NOT SIGNED BY PT R/T EMILY LOPEZ.
== END 2020-03-29 23:00 | disposition left against medical advice (07) ==
LOC: EDUNIT# 18:30 → ER 18:31
DX: R07.9 Chest pain, unspecified (principal); F19.10 Other psychoactive substance abuse, uncomplicated; F15.90 Other stimulant use, unspecified, uncomplicated; F17.210 Nicotine dependence, cigarettes, uncomplicated; Z20.828 Contact with and (suspected) exposure to other viral communicable diseases; Z88.5 Allergy status to narcotic agent; Z88.1 Allergy status to other antibiotic agents; Z88.8 Allergy status to other drugs, medicaments and biological substances; Z79.52 Long term (current) use of systemic steroids
CPT/HCPCS: 71045; 71275; 80053; 80306; 81000; 82150; 82550; 82553; 83605; 83615; 83735; 83874; 83880; 84145; 84484; 84703; 85025; 85379; 85610; 85652; 85730; 86141; 87040; 87804; 93041; 99284; G0480; U0002; 36415; 80320; 87635

== ENCOUNTER 2020-04-03 23:47 | Emergency (ER) | payer OTHER ==
[~2020-04-03] VITALS: Ht 165 cm; Wt 90.0 kg
[2020-04-04] MEDS ORDERED: fentaNYL INJECTION 100 MCG/2 ML AMP IVP ONE (00:15)
[2020-04-04] MEDS ORDERED: ASPIRIN 81 MG CHEW (CHILDREN'S ASA) PO ONE (00:15)
[2020-04-04 00:18] LABS: ALBUMIN 4.1 GM/DL (3.2-4.5)
[2020-04-04 00:19] LABS: BASOPHILS % (AUTO) 0 % (0-10); CHLORIDE 102 MMOL/L (98-107); EOSINOPHILS # (AUTO) 0.1 10^3/uL (0.0-0.3); EOSINOPHILS % (AUTO) 3 % (0-10); HEMATOCRIT 38 % (35-52); HEMOGLOBIN 12.4 g/dL (11.5-16.0); LYMPHOCYTES # (AUTO) 1.6 10^3/uL (1.0-4.0); LYMPHOCYTES % (AUTO) 34 % (12-44); MEAN CORPUSCULAR HEMOGLOBIN 28 pg (25-34); MEAN CORPUSCULAR HGB CONC 33 g/dL (32-36); MEAN CORPUSCULAR VOLUME 87 fL (80-99); MEAN PLATELET VOLUME 9.6 fL (9.0-12.2); MONOCYTES # (AUTO) 0.4 10^3/uL (0.0-1.0); MONOCYTES % (AUTO) 9 % (0-12); NEUTROPHILS # (AUTO) 2.5 10^3/uL (1.8-7.8); NEUTROPHILS % (AUTO) 54 % (42-75); PLATELET COUNT 362 10^3/uL (130-400); POTASSIUM 3.6 MMOL/L (3.6-5.0); SODIUM 133 MMOL/L (135-145); WHITE BLOOD COUNT 4.7 10^3/uL (4.3-11.0)
[2020-04-04 00:20] LABS: CALCIUM 8.6 MG/DL (8.5-10.1); FIBRIN DEGRADATION PRODUCTS 0.96 UG/ML (0.00-0.49); PROTHROMBIN TIME PATIENT 13.1 SEC (12.2-14.7)
[2020-04-04 00:21] LABS: GLUCOSE 83 MG/DL (70-105)
[2020-04-04 00:22] LABS: CARBON DIOXIDE 21 MMOL/L (21-32)
[2020-04-04 00:23] LABS: BILIRUBIN,TOTAL 0.5 MG/DL (0.1-1.0)
[2020-04-04 00:24] LABS: ALKALINE PHOSPHATASE 78 U/L (40-136)
[2020-04-04 00:25] LABS: CREATININE SERUM 0.85 MG/DL (0.60-1.30); GFR ESTIMATED > 60
--- NOTE | 2020-04-04 00:25 | NUR ---
Pt made a PUI due to pt stating she had a Covid exposure last wk; pt states she had 2 negative Covid tests last wk but they were done 2 days after the exposure.
[2020-04-04 00:26] LABS: BUN/CREATININE RATIO 15
--- NOTE | 2020-04-04 00:26 | NUR ---
X-ray at bedside.
[2020-04-04 00:28] LABS: ALANINE AMINOTRANSFERASE 33 U/L (0-55); MAGNESIUM 1.9 MG/DL (1.6-2.4)
[2020-04-04] MEDS ORDERED: KETOROLAC 30 MG/ML VIAL IVP ONE (00:45)
--- NOTE | 2020-04-04 01:18 | ED Chest Pain ---
General Chief Complaint: Chest Pain Stated Complaint: CP Nursing Triage Note: Pt here with c/o chest pressure; reports she was seen here last wk for same cc but left AMA. Nursing Sepsis Screen: No Definite Risk Source: patient Exam Limitations: no limitations History of Present Illness Date Seen by Provider: Apr 03, 2020 Time Seen by Provider: 23:52 Initial Comments This 44-year-old woman presents to the emergency room with complaints of chest pain with inspiration. This pain has been present for about 6 days. She was initially seen for this pain in the emergency room on March 29. She had a fairly unremarkable work-up which included CT angiogram. She ultimately left AMA from that visit. She denies any drug or alcohol use except for marijuana. However, she tested positive for methamphetamines on her prior ER visit. She also reports an exposure to COVID-19 from a coworker. The last exposure was Friday or Friday of last week. She tested negative for Covid on Friday. She is afebrile and denies cough or other acute symptoms of COVID-19. Chest pain and shortness of breath are worse with exertion. Allergies and Home Medications Allergies Coded Allergies: buspirone (Verified Allergy, Unknown, 07/28/19) cephalexin (Verified Allergy, Unknown, 07/28/19) codeine (Verified Allergy, Unknown, 07/28/19) fluoxetine (Verified Allergy, Unknown, 07/28/19) haloperidol (Verified Allergy, Unknown, 07/28/19) Home Medications Amoxicillin 500 Mg Capsule, 500 MG PO TID Prescribed by: ERIK KUNZ on 10/06/19 1308 Azithromycin 250 Mg Tablet, 250 MG PO UD TAKE 2 TABLETS ON DAY ONE THEN TAKE 1 TABLET DAILY FOR FOUR MORE DAYS Prescribed by: ERIK KUNZ on 03/03/20 1212 Benzonatate 100 Mg Capsule, 100 MG PO Q6H PRN for COUGH Prescribed by: EAMON ANTUNEZ on 07/28/19 1140 Prednisone 20 Mg Tab, 40 MG PO DAILY Prescribed by: ERIK KUNZ on 10/06/19 1308 Prednisone 20 Mg Tab, 40 MG PO DAILY Prescribed by: ERIK KUNZ on 03/03/20 1212 Prednisone 20 Mg Tab, 40 MG PO DAILY Prescribed by: HUGO KRAUS on 04/04/20 0324 Patient Home Medication List Home Medication List Reviewed: Yes Review of Systems Review of Systems Constitutional: no symptoms reported EENTM: No Symptoms Reported Respiratory: SOA With Exertion Cardiovascular: See HPI, Chest Pain Gastrointestinal: No Symptoms Reported Genitourinary: No Symptoms Reported Musculoskeletal: no symptoms reported Skin: no symptoms reported Psychiatric/Neurological: Anxiety Endocrine: No Symptoms Reported Hematologic/Lymphatic: No Symptoms Reported Past Vjddffs-Dwilxt-Pskbur Hx Past Med/Social Hx: Reviewed Nursing Past Med/Soc Hx Patient Social History Alcohol Use: Denies Use Recreational Drug Use: Yes (Marijuana) Smoking Status: Current Everyday Smoker Type Used: Cigarettes 2nd Hand Smoke Exposure: Yes Recent Foreign Travel: No Contact w/Someone Who Travel: No Recent Infectious Disease Expo: Yes Recent Hopitalizations: No Immunizations Up To Date Tetanus Booster (TDap): Unknown PED Vaccines UTD: Yes Seasonal Allergies Seasonal Allergies: No Past Medical History Surgeries: Yes Abdominal, Orthopedic, Tubal Ligation Respiratory: No Cardiac: Yes High Cholesterol Neurological: Yes Headaches /Migraines Reproductive Disorders: Yes (ECTOPIC /LEFT SALPINGECTOMY; 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 DENIES IV USE. -SMOKES 1 1/2 PPD Physical Exam Vital Signs Vital Signs - First Documented 04/04/20 00:03 Temp 35.9 Pulse 69 Resp 22 B/P (MAP) 105/71 (82) Pulse Ox 100 O2 Delivery Room Air Capillary Refill : Less Than 3 Seconds Height, Weight, BMI Height: '" Weight: lbs. oz. 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, Other (Mildly anxious) Skin: Normal Color, Warm/Dry Progress/Results/Core Measures Results/Orders Lab Results Laboratory Tests Test 04/03/20 23:55 04/04/20 00:01 04/04/20 01:55 Range/Units White Blood Count 4.7 4.3-11.0 10^3/uL Red Blood Count 4.41 3.80-5.11 10^6/uL Hemoglobin 12.4 11.5-16.0 g/dL Hematocrit 38 35-52 % Mean Corpuscular Volume 87 80-99 fL Mean Corpuscular Hemoglobin 28 25-34 pg Mean Corpuscular Hemoglobin Concent 33 32-36 g/dL Red Cell Distribution Width 13.5 10.0-14.5 % Platelet Count 362 130-400 10^3/uL Mean Platelet Volume 9.6 9.0-12.2 fL Immature Granulocyte % (Auto) 0 % Neutrophils (%) (Auto) 54 42-75 % Lymphocytes (%) (Auto) 34 12-44 % Monocytes (%) (Auto) 9 0-12 % Eosinophils (%) (Auto) 3 0-10 % Basophils (%) (Auto) 0 0-10 % Neutrophils # (Auto) 2.5 1.8-7.8 10^3/uL Lymphocytes # (Auto) 1.6 1.0-4.0 10^3/uL Monocytes # (Auto) 0.4 0.0-1.0 10^3/uL Eosinophils # (Auto) 0.1 0.0-0.3 10^3/uL Basophils # (Auto) 0.0 0.0-0.1 10^3/uL Immature Granulocyte # (Auto) 0.0 0.0-0.1 10^3/uL Prothrombin Time 13.1 12.2-14.7 SEC INR Comment 1.0 0.8-1.4 Activated Partial Thromboplast Time 33 24-35 SEC D-Dimer 0.96 H 0.00-0.49 UG/ML Sodium Level 133 L 135-145 MMOL/L Potassium Level 3.6 3.6-5.0 MMOL/L Chloride Level 102 98-107 MMOL/L Carbon Dioxide Level 21 21-32 MMOL/L Anion Gap 10 5-14 MMOL/L Blood Urea Nitrogen 13 7-18 MG/DL Creatinine 0.85 0.60-1.30 MG/DL Estimat Glomerular Filtration Rate > 60 BUN/Creatinine Ratio 15 Glucose Level 83 70-105 MG/DL Calcium Level 8.6 8.5-10.1 MG/DL Corrected Calcium 8.5 8.5-10.1 MG/DL Magnesium Level 1.9 1.6-2.4 MG/DL Total Bilirubin 0.5 0.1-1.0 MG/DL Aspartate Amino Transf (AST/SGOT) 46 H 5-34 U/L Alanine Aminotransferase (ALT/SGPT) 33 0-55 U/L Alkaline Phosphatase 78 40-136 U/L Myoglobin 57.3 10.0-92.0 NG/ML Troponin I < 0.028 < 0.028 <0.028 NG/ML C-Reactive Protein High Sensitivity 0.10 0.00-0.50 MG/DL Total Protein 9.0 H 6.4-8.2 GM/DL Albumin 4.1 3.2-4.5 GM/DL Coronavirus 2019 ([facility]) Negative Negative My Orders Orders - HUGO ELIAS MD Cbc With Automated Diff (04/03/20 23:51) Magnesium (04/03/20 23:51) Ekg Tracing (04/03/20 23:51) Comprehensive Metabolic Panel (04/03/20 23:51) Myoglobin Serum (04/03/20 23:51) Protime With Inr (04/03/20 23:51) Partial Thromboplastin Time (04/03/20 23:51) O2 (04/03/20 23:51) Monitor-Rhythm Ecg Trace Only (04/03/20 23:51) Ed Iv/Invasive Line Start (04/03/20 23:51) Aspirin Chewable Tablet (Baby Aspirin Ch (04/04/20 00:15) Fentanyl Injection (Sublimaze Injection (04/04/20 00:15) Fibrin Degradation Products (04/03/20 23:55) Hs C Reactive Protein (04/03/20 23:55) Troponin I (04/03/20 23:55) Covid 19 Inhouse Test (04/04/20 00:13) Ketorolac Injection (Toradol Injection) (04/04/20 00:45) Troponin I (04/04/20 02:00) Chest 1 View, Ap/Pa Only (04/04/20 00:01) Medications Given in ED Current Medications Medications Dose Ordered Sig/Henry Route Start Time Stop Time Status Last Admin Dose Admin Aspirin 324 mg ONCE ONCE PO 04/04/20 00:15 04/04/20 00:16 DC 04/04/20 00:07 324 MG Fentanyl Citrate 50 mcg ONCE ONCE IVP 04/04/20 00:15 04/04/20 00:16 DC 04/04/20 00:14 50 MCG Ketorolac Tromethamine 30 mg ONCE ONCE IVP 04/04/20 00:45 04/04/20 00:46 DC 04/04/20 00:52 30 MG Vital Signs/I&O 04/04/20 04/04/20 04/04/20 00:03 00:19 03:46 Temp 35.9 Pulse 69 50 Resp 22 18 B/P (MAP) 105/71 (82) 109/76 Pulse Ox 100 100 O2 Delivery Room Air Room Air Room Air Blood Pressure Mean: 82 Progress Progress Note : Progress Note Chest pain work-up was pursued. Rapid Covid was obtained and was negative. Cardiac work-up was unremarkable. D-dimer was slightly elevated but not significantly increased from her prior visit during which a CT angiogram was negative for PE. Patient was originally treated with fentanyl. This was followed by Toradol. Pain nearly resolved with these measures. Repeat 2-hour troponin was also negative. Patient was ultimately cleared from a cardiac perspective in the ER. She was offered a prescription for prednisone which she accepted. Pain seems to be likely pleurisy or other pleuritic pain. Initial ECG Impression Date: Apr 03, 2020 Initial ECG Impression Time: 23:57 Initial ECG Rate: 69 Initial ECG Rhythm: Normal Sinus Initial ECG Intervals: Normal Initial ECG Impression: Normal Comment Normal sinus rhythm with no ST elevation or depression. No abnormal intervals or axis deviation. Diagnostic Imaging Diagonstic Imaging: Xray Plain Films/CT/US/NM/MRI: chest Comments Chest x-ray viewed by me. Report not yet available. No acute abnormalities appreciated. Departure Impression Primary Impression: Atypical chest pain Disposition: 01 HOME, SELF-CARE Condition: Improved Departure-Patient Inst. Decision time for Depature: 03:23 Referrals: NO,LOCAL PHYSICIAN (PCP/Family) Primary Care Physician Patient Instructions: Chest Pain That Is Not Caused by the Heart (DC) Add. Discharge Instructions: For your pain you may take ibuprofen up to 600 mg every 6 hours as needed and/or Tylenol (acetaminophen) up to 1000 mg every 6 hours as needed. Work toward quitting smoking and reduce your smoking in the meantime. Also refrain from the use of any illicit substances such as marijuana or methamphetamines. Follow-up with your primary care provider soon as possible. Return to care if you have worsening symptoms. All discharge instructions reviewed with patient and/or family. Voiced understanding. Scripts Prednisone (Prednisone) 20 Mg Tab 40 MG PO DAILY, #8 TAB 0 Refills Prov: HUGO ELIAS MD 04/04/20 HUGO ELIAS MD Apr 04, 2020 01:18
[2020-04-04] MEDS ORDERED: PRD20T PO (03:24)
[2020-04-04 03:46] VITALS: BP 109/76
--- NOTE | 2020-04-04 06:50 | Diagnostic Imaging Report ---
INDICATION: Chest pain. TECHNIQUE: Single view chest 12:32 AM. CORRELATION STUDY: 03/29/2020 FINDINGS: The heart size, mediastinal configuration and pulmonary vascularity are within normal limits. The lungs are clear with no consolidating infiltrate. There is no significant effusion or pneumothorax. IMPRESSION: 1. Negative for acute abnormality of the chest. Dictated by: Dictated on workstation # [id number]
== END 2020-04-04 03:48 | disposition home or self-care (01) ==
LOC: EDUNIT# 23:47 → ER 23:50
DX: R07.89 Other chest pain (principal); F41.9 Anxiety disorder, unspecified; F17.210 Nicotine dependence, cigarettes, uncomplicated; Z20.828 Contact with and (suspected) exposure to other viral communicable diseases; Z88.5 Allergy status to narcotic agent; Z88.1 Allergy status to other antibiotic agents; Z88.8 Allergy status to other drugs, medicaments and biological substances; Z79.52 Long term (current) use of systemic steroids
CPT/HCPCS: 71045; 80053; 83735; 83874; 84484 ×2; 85025; 85379; 85610; 85730; 86141; 93005; 93041 ×2; 99284; U0002; 36415; 87635

== ENCOUNTER 2020-12-05 15:40 | Emergency (ER) | payer SELFPAY ==
[~2020-12-05] VITALS: Ht 165 cm; Wt 73.9 kg
[2020-12-05] MEDS ORDERED: LACTATED RINGERS 1,000 ML IV STA (16:20)
[2020-12-05] MEDS ORDERED: KETOROLAC 30 MG/ML VIAL ONE (16:23)
[2020-12-05] MEDS ORDERED: ONDANSETRON 4 MG/2 ML (SDV) Z0FRAN ONE (16:23)
[2020-12-05] MEDS ORDERED: LACTATED RINGERS 1,000 ML IV ONE (16:24)
--- NOTE | 2020-12-05 16:28 | ED General ---
General Stated Complaint: COVID RELATED SYMPTOMS Source of Information: Patient Exam Limitations: No Limitations History of Present Illness Date Seen by Provider: Dec 05, 2020 Time Seen by Provider: 16:06 Initial Comments Patient to the ER by private conveyance from home with chief complaint that she has had 1 to 2 days progressive onset of cough occasionally productive of sputum, shortness of air body aches malaise nausea and vomiting x1. She has had no diarrhea constipation or dysuria. She says she smoked some meth this morning to try and get more energy but was unsuccessful. She does not know if she is had a fever or not. No antipyretics. She routinely smokes a pack of cigarettes a day but has not for the past 3 days. She has not seen anybody nor been tested for Covid. She has not had any sick contacts, camping or traveling outside the [facility]. Allergies and Home Medications Allergies Coded Allergies: buspirone (Verified Allergy, Unknown, 07/28/19) cephalexin (Verified Allergy, Unknown, 07/28/19) codeine (Verified Allergy, Unknown, 07/28/19) fluoxetine (Verified Allergy, Unknown, 07/28/19) haloperidol (Verified Allergy, Unknown, 07/28/19) Home Medications Amoxicillin 500 Mg Capsule, 500 MG PO TID Prescribed by: ERIK KUNZ on 10/06/19 1308 Azithromycin 250 Mg Tablet, 250 MG PO UD TAKE 2 TABLETS ON DAY ONE THEN TAKE 1 TABLET DAILY FOR FOUR MORE DAYS Prescribed by: ERIK KUNZ on 03/03/20 1212 Benzonatate 100 Mg Capsule, 100 MG PO Q6H PRN for COUGH Prescribed by: EAMON ANTUNEZ on 07/28/19 1140 Prednisone 20 Mg Tab, 40 MG PO DAILY Prescribed by: ERIK KUNZ on 10/06/19 1308 Prednisone 20 Mg Tab, 40 MG PO DAILY Prescribed by: ERIK KUNZ on 03/03/20 1212 Prednisone 20 Mg Tab, 40 MG PO DAILY Prescribed by: HUGO KRAUS on 04/04/20 0324 Patient Home Medication List Home Medication List Reviewed: Yes Review of Systems Review of Systems Constitutional: chills; No fever; malaise EENTM: No ear discharge, No ear pain Respiratory: cough; No phlegm, No short of breath, No wheezing Cardiovascular: No chest pain, No edema Gastrointestinal: No abdominal pain, No constipation, No diarrhea; nausea, vomiting Genitourinary: No discharge, No dysuria Musculoskeletal: No back pain, No joint pain Skin: No pruritus, No rash All Other Systems Reviewed Negative Unless Noted: Yes Past Bkrbtpu-Yjgisk-Wayfsl Hx Patient Social History Tobacco Use?: Yes Tobacco type used: Cigarettes Substance use?: Yes Substance type: Methamphetamine Alcohol Use?: No Immunizations Up To Date Tetanus Booster (TDap): Unknown PED Vaccines UTD: Yes Seasonal Allergies Seasonal Allergies: No Past Medical History Surgeries: Yes Abdominal, Orthopedic, Tubal Ligation Respiratory: No Cardiac: Yes High Cholesterol Neurological: Yes Headaches /Migraines Reproductive Disorders: Yes (ECTOPIC /LEFT SALPINGECTOMY; 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 DENIES IV USE. -SMOKES 1 1/2 PPD Physical Exam Vital Signs Vital Signs - First Documented Capillary Refill : Height, Weight, BMI Height: '" Weight: lbs. oz. kg; 33.00 BMI Method: General Appearance: WD/WN, Mild Distress Eyes: Bilateral Eye Normal Inspection, Bilateral Eye PERRL, Bilateral Eye EOMI HEENT: PERRL/EOMI, Pharynx Normal, Moist Mucous Membranes Neck: Full Range of Motion, Normal Inspection Respiratory: Lungs Clear, Normal Breath Sounds, No Accessory Muscle Use, No Respiratory Distress Cardiovascular: Regular Rate, Rhythm, No Edema, Normal Peripheral Pulses Gastrointestinal: Normal Bowel Sounds, Non Tender, Soft Extremity: Normal Capillary Refill, Normal Inspection, No Pedal Edema Neurologic/Psychiatric: Alert, Oriented x3, No Motor/Sensory Deficits Skin: Normal Color, Warm/Dry Progress/Results/Core Measures Suspected Sepsis SIRS Temperature: Pulse: Respiratory Rate: Laboratory Tests 12/05/20 16:20: White Blood Count 5.2 Blood Pressure / Mean: Laboratory Tests 12/05/20 16:20: Creatinine 0.87, Platelet Count 195, Total Bilirubin 0.3 Results/Orders Lab Results Laboratory Tests Test 12/05/20 16:11 12/05/20 16:20 Range/Units Influenza Type A (RT-PCR) Not Detected Not Detecte Influenza Type B (RT-PCR) Not Detected Not Detecte SARS-CoV-2 RNA (RT-PCR) Detected H Not Detecte White Blood Count 5.2 4.3-11.0 10^3/uL Red Blood Count 4.75 3.80-5.11 10^6/uL Hemoglobin 13.2 11.5-16.0 g/dL Hematocrit 39 35-52 % Mean Corpuscular Volume 82 80-99 fL Mean Corpuscular Hemoglobin 28 25-34 pg Mean Corpuscular Hemoglobin Concent 34 32-36 g/dL Red Cell Distribution Width 13.3 10.0-14.5 % Platelet Count 195 130-400 10^3/uL Mean Platelet Volume 10.5 9.0-12.2 fL Immature Granulocyte % (Auto) 1 % Neutrophils (%) (Auto) 76 H 42-75 % Lymphocytes (%) (Auto) 17 12-44 % Monocytes (%) (Auto) 7 0-12 % Eosinophils (%) (Auto) 0 0-10 % Basophils (%) (Auto) 0 0-10 % Neutrophils # (Auto) 4.0 1.8-7.8 10^3/uL Lymphocytes # (Auto) 0.9 L 1.0-4.0 10^3/uL Monocytes # (Auto) 0.4 0.0-1.0 10^3/uL Eosinophils # (Auto) 0.0 0.0-0.3 10^3/uL Basophils # (Auto) 0.0 0.0-0.1 10^3/uL Immature Granulocyte # (Auto) 0.0 0.0-0.1 10^3/uL Sodium Level 133 L 135-145 MMOL/L Potassium Level 4.1 3.6-5.0 MMOL/L Chloride Level 100 98-107 MMOL/L Carbon Dioxide Level 20 L 21-32 MMOL/L Anion Gap 13 5-14 MMOL/L Blood Urea Nitrogen 17 7-18 MG/DL Creatinine 0.87 0.60-1.30 MG/DL Estimat Glomerular Filtration Rate 71 BUN/Creatinine Ratio 20 Glucose Level 90 70-105 MG/DL Calcium Level 9.0 8.5-10.1 MG/DL Corrected Calcium 9.2 8.5-10.1 MG/DL Total Bilirubin 0.3 0.1-1.0 MG/DL Aspartate Amino Transf (AST/SGOT) 37 H 5-34 U/L Alanine Aminotransferase (ALT/SGPT) 31 0-55 U/L Alkaline Phosphatase 100 40-136 U/L C-Reactive Protein High Sensitivity 11.05 H 0.00-0.50 MG/DL Total Protein 10.1 H 6.4-8.2 GM/DL Albumin 3.8 3.2-4.5 GM/DL Procalcitonin 0.08 <0.10 NG/ML My Orders Orders - EAMON ANTUNEZ Ketorolac Injection (Toradol Injection) (12/05/20 16:30) Lactated Ringers (Lr 1000 Ml Iv Solution (12/05/20 16:20) Ondansetron Injection (Zofran Injectio (12/05/20 16:30) Cbc With Automated Diff (12/05/20 16:21) Comprehensive Metabolic Panel (12/05/20 16:21) Hs C Reactive Protein (12/05/20 16:21) Procalcitonin (Pct) (12/05/20 16:21) Covid 19 Inhouse Test (12/05/20 16:21) Influenza A And B By Pcr (12/05/20 16:21) Ketorolac Injection (Toradol Injection) (12/05/20 16:23) Ondansetron Injection (Zofran Injectio (12/05/20 16:23) Lactated Ringers (Lr 1000 Ml Iv Solution (12/05/20 16:24) Medications Given in ED Current Medications Medications Dose Ordered Sig/Henry Route Start Time Stop Time Status Last Admin Dose Admin Ketorolac Tromethamine 30 mg STK-MED ONCE .ROUTE 12/05/20 16:23 12/05/20 16:26 DC 12/05/20 16:29 30 MG Ondansetron HCl 8 mg ONCE ONCE IVP 12/05/20 16:30 12/05/20 16:31 DC 12/05/20 16:29 8 MG Vital Signs/I&O 12/05/20 12/05/20 16:10 16:10 Temp 36.1 Pulse 113 Resp 22 B/P (MAP) 110/86 (94) Pulse Ox 100 O2 Delivery Room Air Room Air Capillary Refill : Progress Note : Time: 16:27 Progress Note A liter of lactated Ringer's for her tachycardia, Toradol and Zofran for her symptoms. Covid swab. Basic labs. She is afebrile and other than tachycardia is a septic at this time. Lungs sound clear so a chest x-ray is not necessary. We can probably send her home with some cough medicine if her labs and examination are otherwise consistent. Departure Impression Primary Impression: COVID-19 Disposition: 01 HOME, SELF-CARE Condition: Stable Departure-Patient Inst. Decision time for Depature: 17:51 Referrals: RAFA HUBBARD APRN (PCP/Family) Primary Care Physician Patient Instructions: COVID-19 (DC) Add. Discharge Instructions: Drink plenty of fluids. Tylenol 1000 mg every 8 hours necessary for pain. Ibuprofen 800 mg every 8 hours necessary for pain and fever. Tessalon Perles 1 capsule every 6 hours as necessary for cough. Get plenty of rest. You may return off isolation after you have been 10 days from the start of symptoms. The last day you need to be symptom-free for 24 hours before going off Covid isolation. Scripts Ondansetron (Ondansetron Odt) 4 Mg Tab.rapdis 4 MG PO Q6H PRN for NAUSEA/VOMITING, #15 TAB 0 Refills Prov: EAMON ANTUNEZ 12/05/20 Benzonatate (Tessalon Perle) 100 Mg Capsule 100 MG PO Q6H PRN for COUGH, #20 CAP 0 Refills Prov: EAMON ANTUNEZ 12/05/20 Work/School Note: Work Release Form Date Seen in the Emergency Department: Dec 05, 2020 Return to Work: Dec 12, 2020 Restrictions: No Restrictions EAMON ANTUNEZ Dec 05, 2020 16:28
[2020-12-05] MEDS ORDERED: KETOROLAC 30 MG/ML VIAL IVP ONE (16:30)
[2020-12-05] MEDS ORDERED: ONDANSETRON 4 MG/2 ML (SDV) Z0FRAN IVP ONE (16:30)
[2020-12-05 16:40] LABS: BASOPHILS % (AUTO) 0 % (0-10); EOSINOPHILS % (AUTO) 0 % (0-10); HEMATOCRIT 39 % (35-52); HEMOGLOBIN 13.2 g/dL (11.5-16.0); LYMPHOCYTES # (AUTO) 0.9 10^3/uL (1.0-4.0); LYMPHOCYTES % (AUTO) 17 % (12-44); MEAN CORPUSCULAR HEMOGLOBIN 28 pg (25-34); MEAN CORPUSCULAR HGB CONC 34 g/dL (32-36); MEAN CORPUSCULAR VOLUME 82 fL (80-99); MEAN PLATELET VOLUME 10.5 fL (9.0-12.2); MONOCYTES # (AUTO) 0.4 10^3/uL (0.0-1.0); MONOCYTES % (AUTO) 7 % (0-12); NEUTROPHILS % (AUTO) 76 % (42-75); PLATELET COUNT 195 10^3/uL (130-400); WHITE BLOOD COUNT 5.2 10^3/uL (4.3-11.0)
[2020-12-05 16:50] LABS: ALBUMIN 3.8 GM/DL (3.2-4.5); POTASSIUM 4.1 MMOL/L (3.6-5.0)
[2020-12-05 16:53] LABS: TOTAL PROTEIN 10.1 GM/DL (6.4-8.2)
[2020-12-05 16:54] LABS: BILIRUBIN,TOTAL 0.3 MG/DL (0.1-1.0)
[2020-12-05 16:56] LABS: CREATININE SERUM 0.87 MG/DL (0.60-1.30)
[2020-12-05] MEDS ORDERED: BENZ-13 PO (17:52)
[2020-12-05] MEDS ORDERED: ONDA4TAB11 PO (17:52)
[2020-12-05 18:00] VITALS: BP 107/93
== END 2020-12-05 18:00 | disposition home or self-care (01) ==
LOC: EDUNIT# 15:40 → ER 15:43
DX: U07.1 COVID-19 (principal); Z79.82 Long term (current) use of aspirin
CPT/HCPCS: 36415; 80053; 84145; 85025; 86141; 87636

== ENCOUNTER 2021-05-07 10:32 | Emergency (ER) | payer SELFPAY ==
[~2021-05-07] VITALS: Ht 165.1 cm; Wt 75.0 kg
[~2021-05-07 10:32] MED LIST changes: +BENZ-13 PO; +ONDA4TAB11 PO
--- NOTE | 2021-05-07 12:09 | ED Respiratory ---
General Chief Complaint: COVID19 Suspect/Confirmed Stated Complaint: COUGH,BODY ACHES,SOB,LOSS OF TASTE Nursing Triage Note: PT AMB TO RM 5 WITH COMPLAINT OF COUGH, SOA, LOSS OF TASTE/SMELL, WEAKNESS. Source: patient Exam Limitations: no limitations (MATT MARIE STUDENT) History of Present Illness Date Seen by Provider: May 07, 2021 Time Seen by Provider: 12:00 Initial Comments Ms. Rico is a 45yoF presenting to the ED with cc of cough, SOA and loss of taste. Her symptoms began one week ago with body aches and loss of taste and have progressed to include ear pain, migraines, body aches, cough, congestion and pleuritic chest pain. She has increased SOA when lying flat. Yesterday she began having LBP and lower abdominal pain and noticed some hematuria but denies dysuria. She has taken OTC cold medicine to treat her symptoms at home. Patient was COVID positive in January and took about 2 months to recover with OTC delano tments only. She smokes daily and reported recent methamphetamine use in late April. She does not report any sick contacts. She is currently stable, mildy tachycardic at 106, bp 109/78 and O2 sat 98%. Timing/Duration: week, getting worse Severity: moderate Associated Symptoms: chest pain/soreness, cough, dizziness, earache, headache, muscle aches, nasal congestion, nasal drainage, shortness of breath; No wheezing (MATT MARIE STUDENT) Allergies and Home Medications Allergies Coded Allergies: buspirone (Verified Allergy, Unknown, 07/28/19) cephalexin (Verified Allergy, Unknown, 07/28/19) codeine (Verified Allergy, Unknown, 07/28/19) fluoxetine (Verified Allergy, Unknown, 07/28/19) haloperidol (Verified Allergy, Unknown, 07/28/19) Patient Home Medication List Home Medication List Reviewed: Yes (SOFÍA PIERRE MD) Albuterol Sulfate (Proair Hfa) 1 Puff Puff, 2 PUFF IH Q4H PRN for shortness of breath Prescribed by: SOFÍA PIERRE on 05/07/21 1438 Amoxicillin (Amoxicillin) 500 Mg Capsule, 500 MG PO TID Prescribed by: ERIK KUNZ on 10/06/19 1308 Amoxicillin/Potassium Clav (Augmentin 875-125 Tablet) 1 Each Tablet, 1 EACH PO BID Prescribed by: SOFÍA PIERRE on 05/07/21 1438 Azithromycin (Azithromycin) 250 Mg Tablet, 250 MG PO UD Prescribed by: ERIK KUNZ on 03/03/20 1212 Azithromycin (Azithromycin) 250 Mg Tablet, 250 MG PO DAILY Prescribed by: SOFÍA PIERRE on 05/07/21 1438 Benzonatate (Tessalon Perles) 100 Mg Capsule, 100 MG PO Q6H PRN for COUGH Prescribed by: EAMON ANTUNEZ on 07/28/19 1140 Benzonatate (Tessalon Perle) 100 Mg Capsule, 100 MG PO Q6H PRN for COUGH Prescribed by: EAMON ANTUNEZ on 12/05/20 1752 Benzonatate (Tessalon Perles) 100 Mg Capsule, 200 MG PO TID PRN for cough Prescribed by: SOFÍA PIERRE on 05/07/21 1438 Ondansetron (Ondansetron Odt) 4 Mg Tab.rapdis, 4 MG PO Q6H PRN for NAUSEA/VOMITING Prescribed by: EAMON ANTUNEZ on 12/05/20 1752 Prednisone (Prednisone) 20 Mg Tab, 40 MG PO DAILY Prescribed by: ERIK KUNZ on 10/06/19 1308 Prednisone (Prednisone) 20 Mg Tab, 40 MG PO DAILY Prescribed by: ERIK KUNZ on 03/03/20 1212 Prednisone (Prednisone) 20 Mg Tab, 40 MG PO DAILY Prescribed by: HUGO KRAUS on 04/04/20 0324 Review of Systems Review of Systems Constitutional: No chills, No diaphoresis, No fever; malaise, weakness; No weight loss EENTM: ear pain, nose congestion, throat pain; No blurred vision, No throat swelling Respiratory: cough, orthopnea, short of breath; No wheezing Cardiovascular: No edema, No palpitations Gastrointestinal: RLQ, LLQ; No nausea, No vomiting Genitourinary: No decreased output, No discharge, No frequency; hematuria, other (b/l flank pain) Musculoskeletal: back pain; No joint pain; muscle pain Skin: no symptoms reported Psychiatric/Neurological: Headache; Denies Numbness, Denies Paresthesia, Denies Weakness Hematologic/Lymphatic: Denies Easy Bruising Immunological/Allergic: no symptoms reported (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 Dream[employer] STUDENT) Past Vexrzzz-Torunb-Eamndy Hx Patient Social History Tobacco Use?: Yes Tobacco type used: Cigarettes Smoking Status: Current Everyday Smoker Substance use?: Yes Substance type: Methamphetamine (last used over the holiday) Substance frequency: Once in a while Alcohol Use?: No (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,[employer] 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) Immunizations Up To Date Tetanus Booster (TDap): Unknown PED Vaccines UTD: Yes (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,[employer] STUDENT) Seasonal Allergies Seasonal Allergies: No (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[employer] STUDENT) Past Medical History Surgeries: Yes Abdominal, Orthopedic, Tubal Ligation Respiratory: No Cardiac: Yes High Cholesterol Neurological: Yes Headaches /Migraines Reproductive Disorders: Yes (ECTOPIC /LEFT SALPINGECTOMY; BTL) [employer] History: Tubal Ligation Genitourinary: No Gastrointestinal: Yes Gastroesophageal Reflux, Ulcer Musculoskeletal: Yes (LEFT 5TH FINGER SURGERY) Endocrine: Yes (hypoglycemia) HEENT: No Cancer: No Psychosocial: Yes (BORDERLINE PERSONALITY; PARANOIA) ADD/ADHD, Anxiety, Bipolar, Personality Disorder, Schizophrenia, Depression Integumentary: No Blood Disorders: No (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 STUDENT) Family Medical History SOCIAL HISTORY: -ETOH--HISTORY OF ABUSE, CLAIMS NO RECENT USE, PER PT 03/29/20 -DRUGS--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 DENIES IV USE. -SMOKES 1 1/2 PPD (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 STUDENT) Physical Exam Vital Signs - First Documented 05/07/21 11:49 Pulse 121 Resp 22 B/P (MAP) 109/78 (88) Pulse Ox 97 O2 Delivery Room Air (SOFÍA PIERRE MD) Capillary Refill : Less Than 3 Seconds (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 STUDENT) Height: '" Weight: lbs. oz. kg; 27.00 BMI Method: General Appearance: WD/WN, no apparent distress Eyes: Bilateral Eye Normal Inspection, Bilateral Eye PERRL HEENT: PERRL/EOMI, normal ENT inspection, TMs normal, pharynx normal Neck: non-tender, full range of motion, supple, normal inspection Respiratory: no respiratory distress, no accessory muscle use, crackles (LLL); No wheezing Cardiovascular: no edema, no gallop, no JVD, no murmur, tachycardia (106 bpm) Gastrointestinal: soft, no organomegaly, no pulsatile mass, tenderness (LLQ,RLQ) Extremities: normal range of motion, non-tender, normal inspection, no pedal edema, no calf tenderness, normal capillary refill 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, no motor/sensory deficits, alert, normal mood/affect, oriented x 3 Skin: normal color, warm/dry Lymphatic: no adenopathy (MATT MARIE MED STUDENT) Focused Exam Lactate Level 05/07/21 12:35: Lactic Acid Level 0.87 (SOFÍA PIERRE MD) Lactic Acid Level Laboratory Tests Test 05/07/21 12:35 Lactic Acid Level 0.87 MMOL/L (0.50-2.00) (SOFÍA PIERRE MD) Progress/Results/Core Measures Suspected Sepsis SIRS Temperature: Pulse: 121 Respiratory Rate: 22 Blood Pressure 109 /78 Mean: 88 (MATT MARIE STUDENT) Results/Orders Lab Results Laboratory Tests Test 05/07/21 11:52 05/07/21 12:35 05/07/21 13:32 05/07/21 14:19 Range/Units Influenza Type A Antigen NEGATIVE NEGATIVE Influenza Type B Antigen NEGATIVE NEGATIVE SARS-CoV-2 RNA (RT-PCR) Negative Negative White Blood Count 9.5 4.3-11.0 10^3/uL Red Blood Count 4.61 3.80-5.11 10^6/uL Hemoglobin 12.6 11.5-16.0 g/dL Hematocrit 39 35-52 % Mean Corpuscular Volume 85 80-99 fL Mean Corpuscular Hemoglobin 27 25-34 pg Mean Corpuscular Hemoglobin Concent 32 32-36 g/dL Red Cell Distribution Width 13.8 10.0-14.5 % Platelet Count 297 130-400 10^3/uL Mean Platelet Volume 9.8 9.0-12.2 fL Immature Granulocyte % (Auto) 1 % Neutrophils (%) (Auto) 74 42-75 % Lymphocytes (%) (Auto) 16 12-44 % Monocytes (%) (Auto) 8 0-12 % Eosinophils (%) (Auto) 0 0-10 % Basophils (%) (Auto) 0 0-10 % Neutrophils # (Auto) 7.1 1.8-7.8 10^3/uL Lymphocytes # (Auto) 1.6 1.0-4.0 10^3/uL Monocytes # (Auto) 0.8 0.0-1.0 10^3/uL Eosinophils # (Auto) 0.0 0.0-0.3 10^3/uL Basophils # (Auto) 0.0 0.0-0.1 10^3/uL Immature Granulocyte # (Auto) 0.1 0.0-0.1 10^3/uL Prothrombin Time 15.4 H 12.2-14.7 SEC INR Comment 1.2 0.8-1.4 Activated Partial Thromboplast Time 45 H 24-35 SEC Sodium Level 128 L 135-145 MMOL/L Potassium Level 4.3 3.6-5.0 MMOL/L Chloride Level 101 98-107 MMOL/L Carbon Dioxide Level 19 L 21-32 MMOL/L Anion Gap 8 5-14 MMOL/L Blood Urea Nitrogen 7 7-18 MG/DL Creatinine 0.77 0.60-1.30 MG/DL Estimat Glomerular Filtration Rate 81 BUN/Creatinine Ratio 9 Glucose Level 93 70-105 MG/DL Lactic Acid Level 0.87 0.50-2.00 MMOL/L Calcium Level 8.5 8.5-10.1 MG/DL Corrected Calcium 9.0 8.5-10.1 MG/DL Total Bilirubin 0.5 0.1-1.0 MG/DL Aspartate Amino Transf (AST/SGOT) 37 H 5-34 U/L Alanine Aminotransferase (ALT/SGPT) 40 0-55 U/L Alkaline Phosphatase 122 40-136 U/L Total Protein 9.4 H 6.4-8.2 GM/DL Albumin 3.4 3.2-4.5 GM/DL Coronavirus (COVID-19)(PCR) Negative Negative Urine Color DARK YELLOW Urine Clarity SL CLOUDY Urine pH 6.0 5-9 Urine Specific Gipsy 1.010 L 1.016-1.022 Urine Protein NEGATIVE NEGATIVE Urine Glucose (UA) NEGATIVE NEGATIVE Urine Ketones NEGATIVE NEGATIVE Urine Nitrite NEGATIVE NEGATIVE Urine Bilirubin 1+ H NEGATIVE Urine Urobilinogen 0.2 < = 1.0 MG/DL Urine Leukocyte Esterase NEGATIVE NEGATIVE Urine RBC (Auto) 2+ H NEGATIVE Urine RBC 25-50 H /HPF Urine WBC 2-5 /HPF Urine Squamous Epithelial Cells 2-5 /HPF Urine Crystals NONE /LPF Urine Bacteria FEW H /HPF Urine Casts PRESENT /LPF Urine Hyaline Casts 0-2 H /LPF Urine Mucus SMALL H /LPF Urine Trichomonas FEW H /HPF Urine Culture Indicated YES (SOFÍA PIERRE MD) Micro Results Microbiology 05/07/21 Urine Culture - Final, Complete Gram Pos Mixed Bacterial Nelly 05/07/21 Blood Culture - Preliminary, Resulted No growth 05/07/21 Blood Culture - Preliminary, Resulted No growth (SOFÍA PIERRE MD) My Orders Orders - SOFÍA PIERRE MD Cbc With Automated Diff (05/07/21 12:12) Comprehensive Metabolic Panel (05/07/21 12:12) Blood Culture (05/07/21 12:12) Urinalysis (05/07/21 12:12) Urine Culture (05/07/21 12:12) Protime With Inr (05/07/21 12:12) Partial Thromboplastin Time (05/07/21 12:12) Chest 1 View, Ap/Pa Only (05/07/21 12:12) Ed Iv/Invasive Line Start (05/07/21 12:12) Ed Iv/Invasive Line Start (05/07/21 12:12) Vital Signs Adult Sepsis Patie Q15M (05/07/21 12:12) O2 (05/07/21 12:12) Remove Rings In Anticipation O (05/07/21 12:12) Lactic Acid Analyzer (05/07/21 12:12) Influenza A & B Antigens (05/07/21 12:12) Covid 19 Inhouse Test (05/07/21 12:12) Isolation Central Supply Req (05/07/21 12:12) Ketorolac Injection (Toradol Injection) (05/07/21 12:15) Coronavirus Sars-Cov-2 So 2018 (05/07/21 13:32) Azithromycin Tablet (Zithromax Tablet) (05/07/21 14:30) Amoxicillin/Clavulanate Tablet (Augmenti (05/07/21 14:30) (SOFÍA PIERRE MD) Medications Given in ED (SOFÍA PIERRE MD) Vital Signs/I&O 05/07/21 05/07/21 11:49 15:05 Pulse 121 68 Resp 22 18 B/P (MAP) 109/78 (88) 108/77 Pulse Ox 97 95 O2 Delivery Room Air Room Air (SOFÍA PIERRE MD) Vital Signs/I&O Capillary Refill : Less Than 3 Seconds (MATT MARIE MED STUDENT) Blood Pressure Mean: 88 Progress Note : Time: 14:31 Progress Note 45-year-old female chief complaint Covid symptoms, shortness of breath cough. Recently had Covid within the last 6 months. Has lost taste again over the last week. Short of breath with exertion and worse with laying flat. Taking tbku-kvv-mranxln medications to alleviate symptoms without relief. Physical exam remarkable for crackles at the bilateral bases. Oxygen saturations are 97% on room air. She is slightly tachycardic in the 120s. No respiratory distress is noted. Appears a little bit dry and oral mucosa. Coarse wet cough. Looks sick. Evaluation today includes sepsis work-up. She does have brisk capillary refill. She is not hypotensive she does not have an elevated lactic acid. She does not meet the 30 mg/kg fluid bolus requirements. Chest x-ray pertinent for bilateral basilar infiltrates. White count is unremarkable. Chemistry shows a slight hyponatremia. We will put her on antibiotics for community-acquired pneumonia, Augmentin and azithromycin. First dose given in the ER. We will send her home with an albuterol inhaler and Tessalon Perles. Continued kjjc-nsx-ovysoxe decongestants. (SOFÍA PIERRE MD) Counseling-Symptomatic: 3-10 Minutes Follow-up with PCP to: Discuss Further Options (SOFÍA PIERRE MD) Departure Impression Primary Impression: Pneumonia Qualified Codes: J18.9 - Pneumonia, unspecified organism Additional Impressions: Person under investigation for COVID-19 Hyponatremia Microscopic hematuria Disposition: 01 HOME, SELF-CARE Condition: Stable Departure-Patient Inst. Decision time for Depature: 14:33 (SOFÍA PIERRE MD) Referrals: RAFA HUBBARD APRN (PCP/Family) Primary Care Physician Patient Instructions: Hyponatremia, Community-Acquired Pneumonia in Adults Add. Discharge Instructions: Drink plenty of fluids to stay well-hydrated. You need to be drinking Gatorade/Powerade/Pedialyte. Your sodium was a little bit low today. These drinks will help bring it back up. Use the albuterol inhaler 2 puffs every 4-6 hours as needed for shortness of breath. Tessalon Perles for cough. I have given you 2 different antibiotics. 1 of these the azithromycin you will take once a day for 4 days starting tomorrow. The Augmentin you will take 1 pill twice a day for 7 days. You should get an oxygen monitor from [facility] when you bulk picker your antibiotics. Check your oxygen levels off and on while you are taking your antibiotics. If you notice that the levels are dropping below 90 please come back to the emergency department. The hospital will contact you if your repeat Covid test is positive by tomorrow. Until then please quarantine/self isolate until you get those results. Follow-up with your primary care provider in 2 weeks. You should consider stopping smoking Scripts Benzonatate (TESSALON PERLES) 100 Mg Capsule 200 MG PO TID PRN for cough, #30 CAP Prov: SOFÍA PIERRE MD 05/07/21 Albuterol Sulfate (PROAIR HFA) 1 Puff Puff 2 PUFF IH Q4H PRN for shortness of breath, #1 EA 1 PUFF = 90 MCG Prov: SOFÍA PIERRE MD 05/07/21 Azithromycin (Azithromycin) 250 Mg Tablet 250 MG PO DAILY, #4 TAB 0 Refills Prov: SOFÍA PIERRE MD 05/07/21 Amoxicillin/Potassium Clav (Augmentin 875-125 Tablet) 1 Each Tablet 1 EACH PO BID, #14 TAB 0 Refills Prov: SOFÍA PIERRE MD 05/07/21 Verification and Attestation of Medical Student E/M Service A medical student performed and documented this service in my presence. I reviewed and verified all information documented by the medical student and made modifications to such information, when appropriate. I personally performed the physical exam and medical decision making. Sofía Pierre, May 07, 2021,14:31 (SOFÍA PIERRE MD) MATT MARIE MED STUDENT May 07, 2021 12:09 SOFÍA PIERRE MD May 07, 2021 14:37
[2021-05-07] MEDS ORDERED: KETOROLAC 30 MG/ML VIAL IVP ONE (12:15)
[2021-05-07 12:46] LABS: BASOPHILS % (AUTO) 0 % (0-10); EOSINOPHILS % (AUTO) 0 % (0-10); HEMATOCRIT 39 % (35-52); HEMOGLOBIN 12.6 g/dL (11.5-16.0); LYMPHOCYTES # (AUTO) 1.6 10^3/uL (1.0-4.0); LYMPHOCYTES % (AUTO) 16 % (12-44); MEAN CORPUSCULAR HEMOGLOBIN 27 pg (25-34); MEAN CORPUSCULAR HGB CONC 32 g/dL (32-36); MEAN CORPUSCULAR VOLUME 85 fL (80-99); MEAN PLATELET VOLUME 9.8 fL (9.0-12.2); MONOCYTES # (AUTO) 0.8 10^3/uL (0.0-1.0); MONOCYTES % (AUTO) 8 % (0-12); NEUTROPHILS # (AUTO) 7.1 10^3/uL (1.8-7.8); NEUTROPHILS % (AUTO) 74 % (42-75); PLATELET COUNT 297 10^3/uL (130-400); WHITE BLOOD COUNT 9.5 10^3/uL (4.3-11.0)
[2021-05-07 12:56] LABS: ALBUMIN 3.4 GM/DL (3.2-4.5); POTASSIUM 4.3 MMOL/L (3.6-5.0)
[2021-05-07 12:57] LABS: CALCIUM 8.5 MG/DL (8.5-10.1)
[2021-05-07 12:59] LABS: TOTAL PROTEIN 9.4 GM/DL (6.4-8.2)
[2021-05-07 13:01] LABS: BILIRUBIN,TOTAL 0.5 MG/DL (0.1-1.0)
[2021-05-07 13:02] LABS: CREATININE SERUM 0.77 MG/DL (0.60-1.30)
[2021-05-07 13:34] LABS: INR 1.2 (0.8-1.4); PROTHROMBIN TIME PATIENT 15.4 SEC (12.2-14.7)
--- NOTE | 2021-05-07 14:15 | Diagnostic Imaging Report ---
INDICATION: Shortness of breath and cough. TECHNIQUE/COMPARISON: A frontal chest was obtained at 2:12 PM and compared to 04/04/2020. FINDINGS: The heart and mediastinal silhouette are normal in appearance. There is some minimal infiltrate in the lung bases. There is no pneumothorax or pleural fluid collection. IMPRESSION: Minimal bibasilar infiltrates are present with no pneumothorax or pleural fluid. Dictated by: Dictated on workstation # [id number]
[2021-05-07 14:28] LABS: CLARITY,URINE SL CLOUDY; COLOR,URINE DARK YELLOW; GLUCOSE, URINE (UA) NEGATIVE (NEGATIVE); KETONES,URINE NEGATIVE (NEGATIVE); LEUKOCYTE ESTERASE ,URINE NEGATIVE (NEGATIVE); NITRITE,URINE NEGATIVE (NEGATIVE); PROTEIN,URINE NEGATIVE (NEGATIVE)
[2021-05-07] MEDS ORDERED: AZITHROMYCIN 250 MG TAB (ZITHROMAX) PO ONE (14:30)
[2021-05-07] MEDS ORDERED: AUGMENTIN 875 MG TAB (AMOXICILLIN/CLAVULANATE) PO ONE (14:30)
[2021-05-07] MEDS ORDERED: RT-ALBUINH IH (14:38)
[2021-05-07] MEDS ORDERED: AMOX-358 PO (14:38)
[2021-05-07] MEDS ORDERED: BENZ100C18 PO (14:38)
[2021-05-07] MEDS ORDERED: AZIT250T12 PO (14:38)
[2021-05-07 14:42] LABS: BACTERIA,URINE FEW /HPF; HYALINE CASTS, URINE 0-2 /LPF; RBC,URINE 25-50 /HPF
[2021-05-07 14:43] LABS: TRICHOMONAS,URINE FEW /HPF
[2021-05-07 14:45] LABS: BILIRUBIN,URINE 1+ (NEGATIVE)
[2021-05-07 15:05] VITALS: BP 108/77
== END 2021-05-07 15:05 | disposition home or self-care (01) ==
LOC: EDUNIT# 10:32 → ER 10:33
DX: J18.9 Pneumonia, unspecified organism (principal); E87.1 Hypo-osmolality and hyponatremia; R31.29 Other microscopic hematuria; F17.210 Nicotine dependence, cigarettes, uncomplicated; Z20.822 Contact with and (suspected) exposure to COVID-19
CPT/HCPCS: 36415; 71045; 80053; 81000; 83605; 85025; 85610; 85730; 87040; 87088; 87635; 87636; 87804

== ENCOUNTER 2022-01-19 12:34 | Emergency (ER) | payer SELFPAY ==
[~2022-01-19] VITALS: Ht 165 cm; Wt 77.5 kg
[~2022-01-19 12:34] MED LIST changes: +AMOX-358 PO; +RT-ALBUINH IH
--- NOTE | 2022-01-19 13:02 | ED Cough/URI ---
General Chief Complaint: Cough/Cold/Flu Symptoms Stated Complaint: COUGH/SORE THROAT/EARACHE/CHEST CONGESTION Source: patient History of Present Illness Date Seen by Provider: Jan 19, 2022 Time Seen by Provider: 12:50 Initial Comments Patient is a 46-year-old female who presents to the emergency room with 2 to 3 days of cough, sore throat, earache and chest congestion. She has an occasionally productive cough of clearish to green sputum. Subjective fevers and chills. She did a home COVID test today and it was negative. Since it was negative she was concerned she may have strep throat. She still has her tonsils. She complains of generalized malaise and fatigue. No rashes. Appetite has been okay. Recently came back from [place] on Friday of last week. No leg swelling, calf cramping or history of blood clot. Denies chest pain. No nausea. No diarrhea or symptoms. Former smoker, out of her inhaler. Has been using TheraFlu at home for her symptoms. As well as cough drops. All other review of systems reviewed and negative except as stated Timing/Duration: other (2-3 days) Severity/Quality: moderate, sputum Associated Symptoms: cough, earache, fever/chills (subjective), nasal congestion, sore throat Allergies and Home Medications Allergies Coded Allergies: buspirone (Verified Allergy, Unknown, 07/28/19) cephalexin (Verified Allergy, Unknown, 07/28/19) codeine (Verified Allergy, Unknown, 07/28/19) fluoxetine (Verified Allergy, Unknown, 07/28/19) haloperidol (Verified Allergy, Unknown, 07/28/19) Patient Home Medication List Home Medication List Reviewed: Yes Albuterol Sulfate (Proair Hfa) 1 Puff Puff, 2 PUFF IH Q4H PRN for shortness of breath Prescribed by: SOFÍA ZAPIEN on 05/07/21 1438 Amoxicillin (Amoxicillin) 500 Mg Capsule, 500 MG PO TID Prescribed by: ERIK KUNZ on 10/06/19 1308 Amoxicillin/Potassium Clav (Augmentin 875-125 Tablet) 1 Each Tablet, 1 EACH PO BID Prescribed by: SOFÍA ZAPIEN on 05/07/21 1438 Azithromycin (Azithromycin) 250 Mg Tablet, 250 MG PO UD Prescribed by: ERIK KUNZ on 03/03/20 1212 Azithromycin (Azithromycin) 250 Mg Tablet, 250 MG PO DAILY Prescribed by: SOFÍA ZAPIEN on 05/07/21 1438 Benzonatate (Tessalon Perles) 100 Mg Capsule, 100 MG PO Q6H PRN for COUGH Prescribed by: EAMON ANTUNEZ on 07/28/19 1140 Benzonatate (Tessalon Perle) 100 Mg Capsule, 100 MG PO Q6H PRN for COUGH Prescribed by: EAMON ANTUNEZ on 12/05/20 1752 Benzonatate (Tessalon Perles) 100 Mg Capsule, 200 MG PO TID PRN for cough Prescribed by: SOFÍA ZAPIEN on 05/07/21 1438 Ondansetron (Ondansetron Odt) 4 Mg Tab.rapdis, 4 MG PO Q6H PRN for NAUSEA/VOMITING Prescribed by: EAMON ANTUNEZ on 12/05/20 1752 Prednisone (Prednisone) 20 Mg Tab, 40 MG PO DAILY Prescribed by: ERIK KUNZ on 10/06/19 1308 Prednisone (Prednisone) 20 Mg Tab, 40 MG PO DAILY Prescribed by: ERIK KUNZ on 03/03/20 1212 Prednisone (Prednisone) 20 Mg Tab, 40 MG PO DAILY Prescribed by: HUGO KRAUS on 04/04/20 0324 Review of Systems Review of Systems Constitutional: see HPI, fever (subjective), malaise EENTM: hoarseness, nose congestion, throat pain Respiratory: cough Cardiovascular: chest pain (discomfort with cough) Gastrointestinal: no symptoms reported Genitourinary: no symptoms reported Musculoskeletal: no symptoms reported Skin: no symptoms reported All Other Systems Reviewed Negative Unless Noted: Yes Past Dbwihmw-Kauvux-Xkuigy Hx Patient Social History Tobacco Use?: Yes Tobacco type used: Cigarettes Smoking Status: Current Everyday Smoker Substance use?: No Alcohol Use?: No Pt feels they are or have been: No Immunizations Up To Date Tetanus Booster (TDap): Unknown PED Vaccines UTD: Yes Seasonal Allergies Seasonal Allergies: No Past Medical History Surgery/Hospitalization HX: SX: DNC, TUBAL, HAND Surgeries: Yes Abdominal, Orthopedic, Tubal Ligation Respiratory: No Cardiac: Yes High Cholesterol Neurological: Yes Headaches /Migraines Reproductive Disorders: Yes (ECTOPIC /LEFT SALPINGECTOMY; BTL) 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 DENIES IV USE. -SMOKES 1 05/06 PPD Physical Exam Vital Signs - First Documented 01/19/22 12:45 Temp 36.9 Pulse 104 Resp 18 B/P (MAP) 111/87 (95) Pulse Ox 98 Capillary Refill : Height: '" Weight: lbs. oz. kg; 27.00 BMI Method: General Appearance: WD/WN, no apparent distress Eyes: Bilateral Eye Normal Inspection, Bilateral Eye PERRL, Bilateral Eye EOMI HEENT: PERRL/EOMI, TMs normal, pharynx normal, other (no intraoral lesions/rash/petechiae; hoarse voice) Neck: supple, lymphadenopathy (R), lymphadenopathy (L) (upper ant cervical LAD, mildly tender) Respiratory: lungs clear, normal breath sounds, no respiratory distress, no accessory muscle use Cardiovascular: regular rate, rhythm Gastrointestinal: normal bowel sounds, non tender, soft Extremities: normal range of motion, non-tender, normal inspection, no pedal edema, no calf tenderness, normal capillary refill Neurologic/Psychiatric: alert, normal mood/affect, oriented x 3 Skin: normal color, warm/dry Progress/Results/Core Measures Suspected Sepsis SIRS Temperature: Pulse: Respiratory Rate: Blood Pressure / Mean: Results/Orders Lab Results Laboratory Tests Test 01/19/22 12:50 Range/Units Influenza Type A (RT-PCR) Not Detected Not Detecte Influenza Type B (RT-PCR) Not Detected Not Detecte SARS-CoV-2 RNA (RT-PCR) Not Detected Not Detecte My Orders Orders - SOFÍA ZAPIEN MD Covid 19 Inhouse Test (01/19/22 12:57) Influenza A And B By Pcr (01/19/22 12:57) Isolation Central Supply Req (01/19/22 12:57) Vital Signs/I&O 01/19/22 12:45 Temp 36.9 Pulse 104 Resp 18 B/P (MAP) 111/87 (95) Pulse Ox 98 Capillary Refill : Progress Note : Time: 13:43 Progress Note Patient's COVID test is negative. Her vital signs are stable. Her oxygen saturations are normal. Secondary to her history of smoking and need for inhalers we will go ahead and put her on some antibiotics for bronchitis. We will refill her albuterol. Recommend [id number]-bvcurzw continue TheraFlu and cough medicines. Patient is made aware of the plan of care. She verbalized agreement. All questions are sought and answered. Departure Impression Primary Impression: Laryngitis Additional Impressions: Bronchitis Tobacco use Disposition: HOME, SELF-CARE Condition: Stable Departure-Patient Inst. Decision time for Depature: 13:44 Referrals: RAFA HUBBARD APRN (PCP/Family) Primary Care Physician Patient Instructions: Laryngitis (DC), Acute Bronchitis Add. Discharge Instructions: Drink plenty of fluids to stay well-hydrated. Continue TheraFlu per packaging directions. You can also take [id number] ibuprofen 3 tablets which is 600 mg every 6 hours as needed for aches, pains/sore throat. Warm salt water gargles will help your sore throat. Continue your cough drops as needed. Albuterol inhaler 1 to 2 puffs every 4-6 hours as needed for shortness of breath and wheezing. Antibiotics, doxycycline 100 mg tablets 1 twice daily for 10 days. If you develop worsening symptoms such as fevers, worsening shortness of breath, pain, vomiting or any other emergent, concerning symptoms please come back to the emergency room for reevaluation. Scripts Doxycycline Hyclate (Doxycycline Hyclate) 100 Mg Tablet 100 MG PO BID, #20 TAB Prov: SOFÍA ZAPIEN MD 01/19/22 Albuterol Sulfate (PROAIR HFA) 1 Puff Puff 2 PUFF IH Q6H, #1 EA 1 PUFF = 90 MCG Prov: SOFÍA ZAPIEN MD 01/19/22 SOFÍA ZAPIEN MD Jan 19, 2022 13:02
[2022-01-19] MEDS ORDERED: DOXY100T2 PO (13:45)
[2022-01-19] MEDS ORDERED: RT-ALBUINH IH (13:45)
[2022-01-19 13:52] VITALS: BP 115/98
== END 2022-01-19 13:58 | disposition home or self-care (01) ==
LOC: EDUNIT# 12:34 → ER 12:37
DX: J04.0 Acute laryngitis (principal); J40 Bronchitis, not specified as acute or chronic; F17.210 Nicotine dependence, cigarettes, uncomplicated; Z20.822 Contact with and (suspected) exposure to COVID-19; Z28.310 Unvaccinated for COVID-19
CPT/HCPCS: 87636; 99283